=== PATIENT | male | born 1955 | race Asian ===

== ENCOUNTER 2024-01-04 13:44 | Outpatient (AMB) | payer OTHER, SELFPAY ==
[2024-01-04 13:47] VITALS: BP 126/66; PULSE 78; O2SAT 97; BMI 24.8
--- NOTE | 2024-01-04 13:47 | MHC.PC.OV ---
Vital Signs 01/04/24 13:47 Height 6 ft Weight 183 lb BMI 24.8 BP 126/66 Blood Pressure Location Rt brachial Position Sitting Pulse 78 Pulse Source Pulse Oximeter Pulse Oximetry (%) 97 Oxygen Delivery Method Room Air Intake Visit Reasons: New pt PE ok per Dr. Pérez Intake Note: Pt is here today for New patient visit. Allergies No Known Allergies Allergy (Verified 01/04/24 13:50) Medication List - Last Reconciled 01/04/24 by Alem Pérez MD blood-glucose sensor (Dexcom G7 Sensor device) As directed dapagliflozin propanediol 10 mg PO DAILY lisinopril 10 mg PO DAILY metformin 1,000 mg PO BID omeprazole 40 mg PO DAILY Ozempic (semaglutide) 0.25 mg (0.368 mL) subcut QWEEK NS Tobacco use date assessed: 01/04/24 Fall risk assessment: No Falls in past year Last assessed Fall Risk: 01/04/24 Dental Screening Dental Screen Date: 01/04/24 Did you have a dental visit in the last 12 months?: Yes Did you have a dental problem in the last 6 months where you did not have access to dental care?: No Was dental information given to patient?: Patient has dentist HPI New pt PE ok per Dr. 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 He moved from [place]. Past medical history includes type 2 diabetes for over 20 years. Patient reports his blood glucose not well controlled in the last few months with the readings between 140-180 occasionally. He denies polyuria polydipsia. 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 1. Little interest or pleasure in doing things: more than half the days 2. Feeling down, depressed, or hopeless: more than half the days 3. Trouble falling or staying asleep, or sleeping too much: not at all 4. Feeling tired or having little energy: several days 5. Poor appetite or overeating: not at all 6. Feeling bad about yourself - or that you are a failure or have let yourself or your family down: not at all 7. Trouble concentrating on things, such as reading the newspaper or watching television: several days 8. Moving or speaking so slowly that other people could have noticed. Or the opposite - being so fidgety or restless that you have been moving around a lot more than usual: not at all 9. Thoughts that you would be better off or of hurting yourself in some way: not at all Total score: 6 Depression Screening Interpretation: Negative Depression Screening Done: Yes 75451 - PHQ-9 Billing: Yes Source: Developed by Drs. Tapan Mak, Hallie Gaines, Kj Watkins and colleagues, with an educational lay from [employer] Thrive Questionnaire Date Thrive assessed: 01/04/24 I am a: Patient What is your living situation today?: I have a steady place to live Within the past 12 months, did the food you bought not last and you didn't have the money to get more?: Never true Within the past 12 months, did you worry whether your food would run out before you got money to buy more?: I choose not to answer this question Do you have trouble paying for medicines?: I choose not to answer this question Do you have trouble getting transportation to medical appointments?: I choose not to answer this question Do you have trouble paying your heating and electricity bill?: No Do you have trouble taking care of your child, family member or friend?: No Do you have trouble with day-to-day activities such as bathing, preparing meals, shopping, managing finances, etc.?: No Are you currently unemployed and looking for a job?: Yes Are you interested in more education?: Yes Please select the resources that you would like help with: Paying for medicine, Transportation, Job search/training and Education Currently or been in a relationship where the following occur: No concerns reported THRIVE Score: 0 AUDIT C Alcohol Use Questionnaire (AUDIT-C) 1. How often do you have a drink containing alcohol?: 4 or more times a week 2. How many drinks containing alcohol do you have on a typical day when you are drinking?: 1 or 2 3. How often do you have six or more drinks on one occasion?: Never Total Score: 4 HALINA-7 AMB Questionnaire HALINA-7 Date HALINA - 7 assessed: 01/04/24 Feeling nervous, anxious, or on edge: 1 = Several days Not being able to stop or control worryin = Several days Worrying too much about different things: 1 = Several days Trouble relaxin = Several days Being so restless that it is hard to sit still: 0 = Not at all Becoming easily annoyed or irritable: 1 = Several days Feeling afraid as if something awful might happen: 1 = Several days Total HALINA-7 score (0-4 normal; 5-9 mild; 10-14 moderate; 15-21 severe): 6 Source: Developed by Drs. Tapan Mak, Hallie Gaines, Kj Watkins and colleagues, with an educational lay from [employer] HALINA-7 Assessment Billing HALINA-7 Assessment Tool: HALINA-7 Assessment 27893 Review of Systems Const All systems reviewed & are unremarkable except as noted in HPI and below Eyes Reports no additional complaints ENT Reports no additional complaints Card Reports no additional complaints Resp Reports no additional complaints GI Reports no additional complaints Reports no additional complaints Physical exam (Primary Care) Vital Signs: Last Vital Signs Pulse 78 01/04/24 13:47 BP 126/66 01/04/24 13:47 Pulse Ox 97 01/04/24 13:47 Oxygen Delivery Method Room Air 01/04/24 13:47 BMI result Body Mass Index 24.8 Tobacco/Smoking Status: Tobacco use Status Tobacco use date assessed 01/04/24 01/04/24 13:57 Patient Tobacco Use Status Former Tobacco user (01/04/24 14:39 years ago) e-Cigarette/Vaping Use Never Used 01/04/24 14:39 PHQ-9: PHQ-9 Score PHQ-9: Total score 6 01/04/24 14:09 Depression Screening Interpretation: Negative Thrive Assessment: Date of Thrive Assessment Date Thrive assessed 01/04/24 01/04/24 13:57 Currently or been in a relationship where the following occur: No concerns reported Const General: no acute distress HENMT Head: Yes normal to inspection Ears: hearing grossly normal bilaterally Face and sinus: Yes normal facial exam Mouth: Normal oral and palatal mucosa present Throat: Yes posterior oropharynx normal Eyes General: appearance normal, both eyes and all related structures Neck Neck: Yes no lymphadenopathy and Yes supple Resp Effort & Inspection: normal respiratory effort Auscultation: diminished lung sounds Cardio Rhythm: regular rhythm Heart sounds: S1 normal heart sound present and S2 normal heart sound present GI Inspection: Yes normal to inspection Palpation (GI): Soft to palpation Percussion: Yes normal to percussion Auscultation: normal bowel sounds Extrem Other: Diabetic foot exam skin is intact monofilament sensation intact bilaterally General: Yes no clubbing, cyanosis or edema Coding Level of Care Code Complex EM visit Add On G2211 Diagnoses DM type 2 (diabetes mellitus, type 2) E11.9 HTN (hypertension) I10 Hyperlipidemia E78.5 Hx of fracture of patella Z87.81 Annual physical exam Z00.00 Family hx of colon cancer Z80.0 Fatty liver K76.0 Nocturnal polyuria R35.81 Proteinuria R80.9 History of tobacco use Z87.891 Additional Codes HALINA-7 Assessment Billing - HALINA-7 Assessment Tool: HALINA-7 Assessment 01680 ([id number]) Assessment & Plan Assessment & Plan (1) DM type 2 (diabetes mellitus, type 2): Comment: for 24 yrs Code(s): E11.9 - Type 2 diabetes mellitus without complications Category: Medical Plan: A1c is 7.3. ADA diet discussed with the patient metformin will be increased from 500 mg twice a day to a 1000 mg twice a day patient will continue dapagliflozin and Ozempic 0.25 mg weekly will be started. He will start monitoring his glucose with Dexcom due to increased risk of hypoglycemia. He will follow-up in 1 month (2) HTN (hypertension): Code(s): I10 - Essential (primary) hypertension Category: Medical Plan: Potassium was borderline elevated and lisinopril will be decreased from 20 mg to 10 mg a day. Low-potassium diet discussed with the patient basic metabolic panel will be checked in 1 week (3) Hyperlipidemia: Code(s): E78.5 - Hyperlipidemia, unspecified Category: Medical Plan: Low-cholesterol diet discussed with the patient (4) Hx of fracture of patella: Comment: Left patella s/p surgery 07/2023 Code(s): Z87.81 - Personal history of (healed) traumatic fracture Category: Medical Plan: Patient has been in physical therapy for chronic left knee pain (5) Annual physical exam: Code(s): Z00.00 - Encounter for general adult medical examination without abnormal findings Category: Medical Plan: Well-balanced diet regular physical activity discussed with the patient Patient will be referred to GI for colonoscopy (6) Family hx of colon cancer: Comment: sister in 80'S, patient never had colonoscopy Code(s): Z80.0 - Family history of malignant neoplasm of digestive organs Category: Medical Plan: Referred to GI for colonoscopy (7) Fatty liver: Comment: Obtain liver ultrasound Code(s): K76.0 - Fatty (change of) liver, not elsewhere classified Category: Medical Plan: Check liver ultrasound. Stopping drinking alcohol discussed with the patient (8) Nocturnal polyuria: Code(s): R35.81 - Nocturnal polyuria Category: Medical Plan: For nocturnal polyuria bladder scan will be obtained to rule out urinary retention (9) Proteinuria: Code(s): R80.9 - Proteinuria, unspecified Category: Medical Plan: Obtain 24 hour urine collection for proteinuria (10) History of tobacco use: Comment: 2 PPD X 40 YRS, quit 10 years, referred to lung cancer screening program 12/2023 Code(s): Z87.891 - Personal history of nicotine dependence Category: Social Hx Plan: Referred to lung cancer screening program Orders: Orders US abdomen complete Today K76.0 - Fatty (change of) liver, not elsewhere classified, Z87.891 - Personal history of nicotine dependence US bladder Today R35.81 - Nocturnal polyuria Basic Metabolic Panel 1 Week I10 - Essential (primary) hypertension, R80.9 - Proteinuria, unspecified Protein, 24 Hr Urine Group 1 Week I10 - Essential (primary) hypertension, R80.9 - Proteinuria, unspecified Referrals Gastroenterology Referral Z80.0 - Family history of malignant neoplasm of digestive organs Thoracic/General Surgery Referral Z87.891 - Personal history of nicotine dependence Medications: New Ozempic (semaglutide) 0.25 mg (0.368 mL) subcut QWEEK 3 mL 1RF NS metformin 1,000 mg PO BID 180 tabs 1RF lisinopril 10 mg PO DAILY 90 tabs 1RF dapagliflozin propanediol 10 mg PO DAILY 90 tabs 3RF omeprazole 40 mg PO DAILY 30 caps 2RF blood-glucose sensor ([employer] G7 Sensor device) As directed 2 ea 3RF
== END 2024-01-04 15:43 | disposition home or self-care (01) ==
PROVIDERS: PCP Internal Medicine; Visit Provider Internal Medicine
DX: E11.9 Type 2 diabetes mellitus without complications (principal); I10 Essential (primary) hypertension; E78.5 Hyperlipidemia, unspecified; Z87.81 Personal history of (healed) traumatic fracture; Z00.00 Encounter for general adult medical examination without abnormal findings; Z80.0 Family history of malignant neoplasm of digestive organs; K76.0 Fatty (change of) liver, not elsewhere classified; R35.81 Nocturnal polyuria; R80.9 Proteinuria, unspecified; Z87.891 Personal history of nicotine dependence

== ENCOUNTER → 2024-01-04 13:44 | Outpatient (BNVA) | payer OTHER, SELFPAY | PROVIDERS: PCP Internal Medicine; Visit Provider Internal Medicine | DX: Z00.01 Encounter for general adult medical examination with abnormal findings (principal); E11.9 Type 2 diabetes mellitus without complications; I10 Essential (primary) hypertension; E78.5 Hyperlipidemia, unspecified; K76.0 Fatty (change of) liver, not elsewhere classified; R35.81 Nocturnal polyuria; R80.9 Proteinuria, unspecified; Z87.891 Personal history of nicotine dependence; Z87.81 Personal history of (healed) traumatic fracture; Z79.899 Other long term (current) drug therapy; Z80.0 Family history of malignant neoplasm of digestive organs | CPT/HCPCS: 96127; 99202; 99387 ==

== ENCOUNTER 2024-01-29 10:03 | Outpatient (REF) | payer OTHER, SELFPAY ==
--- NOTE | ~2024-01-29 | US_ITS ---
EXAMINATION: US ABDOMEN COMPLETE CLINICAL INFORMATION: Fatty (change of) liver, not elsewhere classified. COMPARISON: None available. TECHNIQUE: Real-time imaging of the abdominal viscera. FINDINGS: PANCREAS: Normal. ABDOMINAL AORTA: The proximal, mid, and distal segments are normal in caliber. INFERIOR VENA CAVA: Visualized portions are normal. LIVER: The liver is normal in size. The liver contour is normal. Increased echogenicity of the liver parenchyma, this can be seen in the setting of hepatic steatosis or liver parenchymal disease. No focal hepatic lesion. There is no intrahepatic biliary duct dilatation seen. GALLBLADDER: Normal. The gallbladder is physiologically distended without evidence of stones, sludge, polyps, wall thickening or pericholecystic fluid. COMMON BILE DUCT: Normal in caliber measuring 0.3 cm in diameter. RIGHT KIDNEY: Normal. No hydronephrosis. No renal calculi or focal parenchymal lesions. The kidney measures 10.9 cm in maximum dimension. LEFT KIDNEY: Large cyst 8.6 x 7.4 cm protruding from the upper pole. No hydronephrosis or renal calculi. The kidney measures 11.6 cm in maximum dimension. SPLEEN: Normal. The spleen measures 9.3 cm in maximum dimension. FREE FLUID: None. US/US abdomen complete IMPRESSION: 1. Increased echogenicity of the liver parenchyma, this can be seen in the setting of hepatic steatosis or liver parenchymal disease. 2. Large cyst protruding from the upper pole left kidney 8.6 cm. Electronically signed by: Rayshawn Sosa MD 02/04/2024 07:06 PM TIM
== END 2024-01-29 10:04 | disposition home or self-care (01) ==
LOC: HO.US 10:03
PROVIDERS: PCP Internal Medicine; Visit Provider Internal Medicine
DX: K76.0 Fatty (change of) liver, not elsewhere classified (principal); R35.81 Nocturnal polyuria; Z87.891 Personal history of nicotine dependence
CPT/HCPCS: 76700; 76857

== ENCOUNTER 2024-02-01 14:22 | Outpatient (AMB) | payer OTHER, SELFPAY ==
--- NOTE | 2024-02-01 14:31 | MHC.PC.OV ---
Vital Signs 02/01/24 14:32 Height 6 ft Weight 180 lb BMI 24.4 BP 110/70 Blood Pressure Location Lt brachial Position Sitting Pulse 88 Pulse Source Pulse Oximeter Pulse Oximetry (%) 97 Oxygen Delivery Method Room Air Intake Visit Reasons: 1 month follow up Intake Note: Pt is here today for 1 month follow up visit. Allergies semaglutide [From Ozempic] Adverse Reaction (Intermediate, Verified 02/01/24 15:25) Nausea and Vomiting Medication List - Last Reconciled 02/01/24 by Alem Pérez MD blood-glucose sensor (Dexcom G7 Sensor device) As directed dapagliflozin propanediol 10 mg PO DAILY lisinopril 10 mg PO DAILY metformin 1,000 mg PO BID omeprazole 40 mg PO DAILY Tobacco use date assessed: 01/04/24 Dental Screening Dental Screen Date: 01/04/24 HPI 1 month follow up HPI Details Patient presents for a follow-up. He could not tolerate Ozempic developed severe nausea decreased appetite and heartburn. He reports high blood glucose readings 50% in above range. Patient has been following ADA diet eating mainly protein and vegetables but no grains. 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 3. Trouble falling or staying asleep, or sleeping too much: several days Source: Developed by Drs. Tapan Mak, Hallie Gaines, Kj Watkins and colleagues, with an educational lay from [employer]. Thrive Questionnaire Date Thrive assessed: 01/04/24 I am a: Patient What is your living situation today?: I have a steady place to live Within the past 12 months, did the food you bought not last and you didn't have the money to get more?: Never true Within the past 12 months, did you worry whether your food would run out before you got money to buy more?: I choose not to answer this question Do you have trouble paying for medicines?: I choose not to answer this question Do you have trouble getting transportation to medical appointments?: I choose not to answer this question Do you have trouble paying your heating and electricity bill?: No Do you have trouble taking care of your child, family member or friend?: No Do you have trouble with day-to-day activities such as bathing, preparing meals, shopping, managing finances, etc.?: No Are you currently unemployed and looking for a job?: Yes Are you interested in more education?: Yes Currently or been in a relationship where the following occur: No concerns reported THRIVE Score: 0 HALINA-7 AMB Questionnaire HALINA-7 Date HALINA - 7 assessed: 01/04/24 Source: Developed by Drs. Tapan Mak, Hallie Gaines, Kj Watkins and colleagues, with an educational lay from [employer]. Review of Systems Const All systems reviewed & are unremarkable except as noted in HPI and below Resp Reports no additional complaints GI Reports no additional complaints Reports no additional complaints Physical exam (Primary Care) Vital Signs: Last Vital Signs Pulse 88 02/01/24 14:32 BP 110/70 02/01/24 14:32 Pulse Ox 97 02/01/24 14:32 Oxygen Delivery Method Room Air 02/01/24 14:32 BMI result Body Mass Index 24.4 Tobacco/Smoking Status: Tobacco use Status Tobacco use date assessed 01/04/24 02/01/24 14:32 Patient Tobacco Use Status Former Tobacco user (02/01/24 14:32 years ago) e-Cigarette/Vaping Use Never Used 02/01/24 14:32 Thrive Assessment: Date of Thrive Assessment Date Thrive assessed 01/04/24 02/01/24 14:32 Currently or been in a relationship where the following occur: No concerns reported Const General: no acute distress Resp Effort & Inspection: normal respiratory effort Auscultation: clear to auscultation bilaterally Cardio Rhythm: regular rhythm Heart sounds: S1 normal heart sound present and S2 normal heart sound present Extrem General: Yes no clubbing, cyanosis or edema Coding Level of Care Code Est Pt Level 4 (28875) Complex EM visit Add On G2211 Diagnoses Proteinuria R80.9 HTN (hypertension) I10 DM type 2 (diabetes mellitus, type 2) E11.9 Insulin dependent type 2 diabetes mellitus E11.9; Z79.4 Assessment & Plan Assessment & Plan (1) Proteinuria: Code(s): R80.9 - Proteinuria, unspecified Category: Medical Plan: Continue dapagliflozin and lisinopril (2) HTN (hypertension): Code(s): I10 - Essential (primary) hypertension Category: Medical Plan: Continue Lisinopril (3) DM type 2 (diabetes mellitus, type 2): Comment: for 24 yrs, intolerant to Ozempic severe nausea Code(s): E11.9 - Type 2 diabetes mellitus without complications Category: Medical Plan: ADA diet discussed with the patient. Metformin will be changed from 1000 mg to 750 mg slow release 2 tabl a day because of stomach upset. Lantus 10 units will be started. Patient was advised to eat 3 regular meals and monitor his blood glucose with Dexcom because of high risk for hypoglycemia. 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
[2024-02-01 14:32] VITALS: BP 110/70; PULSE 88; O2SAT 97; BMI 24.4
== END 2024-02-01 15:09 | disposition home or self-care (01) ==
PROVIDERS: PCP Internal Medicine; Visit Provider Internal Medicine
DX: R80.9 Proteinuria, unspecified (principal); I10 Essential (primary) hypertension; E11.9 Type 2 diabetes mellitus without complications; Z79.4 Long term (current) use of insulin

== ENCOUNTER → 2024-02-01 14:22 | Outpatient (BNVA) | payer OTHER, SELFPAY | PROVIDERS: PCP Internal Medicine; Visit Provider Internal Medicine | DX: R80.9 Proteinuria, unspecified (principal); I10 Essential (primary) hypertension; E11.9 Type 2 diabetes mellitus without complications; Z79.4 Long term (current) use of insulin | CPT/HCPCS: 99212 ==

== ENCOUNTER 2024-03-07 14:02 | Outpatient (AMB) | payer OTHER, SELFPAY ==
--- NOTE | 2024-03-07 14:05 | A.OFFPC_ITS ---
Vital Signs 03/07/24 14:12 Height 6 ft Weight 182 lb BMI 24.7 BP 118/60 Blood Pressure Location Rt brachial Position Sitting Pulse 74 Pulse Source Pulse Oximeter Pulse Oximetry (%) 96 Oxygen Delivery Method Room Air Intake Visit Reasons: 1 month follow up Intake Note: Pt is here today for 1 month follow up visit on DM. Allergies semaglutide [From Ozempic] Adverse Reaction (Intermediate, Verified 03/07/24 14:20) Nausea and Vomiting Medication List - Last Reconciled 03/07/24 by Alem Pérez MD blood-glucose sensor ([employer] G7 Sensor device) As directed dapagliflozin propanediol 10 mg PO DAILY flash glucose sensor ([employer] [employer] Americo 14 Day Sensor kit) Check blood sugar daily insulin lispro (Humalog KwikPen (U-100) Insulin) 4 units (0.04 mL) subcut TID Lantus Solostar U-100 Insulin (insulin glargine) 30 units (0.3 mL) subcut QPM NS lisinopril 10 mg PO BID metformin ER 1,500 mg (2 x 750 mg) PO DAILY omeprazole 40 mg PO DAILY pen needle, diabetic (Comfort EZ Pen [place]) qd Tobacco use date assessed: 01/04/24 Dental Screening Dental Screen Date: 01/04/24 HPI 1 month follow up HPI Details Patient presents for the follow-up on insulin-dependent diabetes hypertension. Patient reports fasting blood glucose between 160-180 and has been 46% in the range by Americo sensor. Patient denies hypoglycemia and has been exercising daily for an hour. 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 [place] Housing: House Patient Tobacco Use Status: Former Tobacco user (10 years ago) e-Cigarette/Vaping Use: Never Used service: No Current occupational status: retired Cognitive needs: No Hearing needs: No Vision needs: No Questionnaire Thrive Questionnaire Date Thrive assessed: 01/04/24 I am a: Patient What is your living situation today?: I have a steady place to live Within the past 12 months, did the food you bought not last and you didn't have the money to get more?: Never true Within the past 12 months, did you worry whether your food would run out before you got money to buy more?: I choose not to answer this question Do you have trouble paying for medicines?: I choose not to answer this question Do you have trouble getting transportation to medical appointments?: I choose not to answer this question Do you have trouble paying your heating and electricity bill?: No Do you have trouble taking care of your child, family member or friend?: No Do you have trouble with day-to-day activities such as bathing, preparing meals, shopping, managing finances, etc.?: No Are you currently unemployed and looking for a job?: Yes Are you interested in more education?: Yes Currently or been in a relationship where the following occur: No concerns reported THRIVE Score: 0 HALINA-7 AMB Questionnaire HALINA-7 Date HALIAN - 7 assessed: 01/04/24 Source: Developed by Drs. Tapan Mak, Hallie Gaines, Kj Watkins and colleagues, with an educational lay from [employer]. Review of Systems Const All systems reviewed & are unremarkable except as noted in HPI and below Card Reports no additional complaints Resp Reports no additional complaints GI Reports no additional complaints Reports no additional complaints Physical exam (Primary Care) Vital Signs: Last Vital Signs Pulse 74 03/07/24 14:12 BP 118/60 03/07/24 14:12 Pulse Ox 96 03/07/24 14:12 Oxygen Delivery Method Room Air 03/07/24 14:12 BMI result Body Mass Index 24.7 Tobacco/Smoking Status: Tobacco use Status Tobacco use date assessed 01/04/24 03/07/24 14:05 Patient Tobacco Use Status Former Tobacco user (03/07/24 14:05 years ago) e-Cigarette/Vaping Use Never Used 03/07/24 14:05 Thrive Assessment: Date of Thrive Assessment Date Thrive assessed 01/04/24 03/07/24 14:05 Currently or been in a relationship where the following occur: No concerns reported Const General: no acute distress HENMT Head: Yes normal to inspection Neck Neck: Yes supple Resp Effort & Inspection: normal respiratory effort Auscultation: clear to auscultation bilaterally Cardio Rhythm: regular rhythm Heart sounds: S1 normal heart sound present and S2 normal heart sound present Coding Level of Care Code Est Pt Level 4 (60779) Diagnoses Insulin dependent type 2 diabetes mellitus E11.9; Z79.4 HTN (hypertension) I10 Proteinuria R80.9 Assessment & Plan Assessment & Plan (1) Insulin dependent type 2 diabetes mellitus: Comment: For 25 years, patient intolerant to Ozempic cause nausea vomiting Code(s): E11.9 - Type 2 diabetes mellitus without complications; 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 Check basic metabolic panel in 1 week (3) Proteinuria: Code(s): R80.9 - Proteinuria, unspecified Category: Medical Plan: Increase lisinopril to 10 mg twice a day follow-up in 1 month Orders: Orders Comprehensive [place]. 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 Complete Blood Count Auto Diff 1 Month E11.9 - Type 2 diabetes mellitus without complications, I10 - Essential (primary) hypertension, R80.9 - Proteinuria, unspecified, Z79.4 - group home (current) use of insulin Hemoglobin A1c 1 Month E11.9 - Type 2 diabetes mellitus without complications, I10 - Essential (primary) hypertension, R80.9 - Proteinuria, unspecified, Z79.4 - 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
[2024-03-07 14:12] VITALS: BP 118/60; PULSE 74; O2SAT 96; BMI 24.7
== END 2024-03-07 15:18 | disposition home or self-care (01) ==
LOC: HO.HMCC 14:02
PROVIDERS: PCP Internal Medicine; Visit Provider Internal Medicine
DX: E11.9 Type 2 diabetes mellitus without complications (principal); Z79.4 Long term (current) use of insulin; I10 Essential (primary) hypertension; R80.9 Proteinuria, unspecified

== ENCOUNTER → 2024-03-07 14:02 | Outpatient (BNVA) | payer OTHER, SELFPAY | PROVIDERS: PCP Internal Medicine; Visit Provider Internal Medicine | DX: E11.9 Type 2 diabetes mellitus without complications (principal); I10 Essential (primary) hypertension; R80.9 Proteinuria, unspecified; Z79.4 Long term (current) use of insulin | CPT/HCPCS: 99212 ==

== ENCOUNTER 2024-03-29 10:15 | Outpatient (AMB) | payer OTHER, SELFPAY ==
--- NOTE | 2024-03-29 07:55 | A.OFFVIS_ITS ---
Intake Visit Reasons: Former Smoker Allergies semaglutide [From Ozempic] Adverse Reaction (Intermediate, Verified 03/07/24 14 :20) Nausea and Vomiting HPI HPI Former Smoker: Details: Initial visit for this 68yo former smoker with a 60PYH. Patient started smoking at age 26 for 31 years at 2ppd. He quit 11 years ago in 02/2013. . Denies marijuana use. Denies second hand smoke exposure. Denies exposure to chemicals or substances like asbestos. . Denies known family history of lung cancer. Denies personal history of cancers. Denies chest CT in last year. . Recent travel outside the [place]. [place] and [place]. Denies recent respiratory illness or recent hospitalization for respiratory issues. Denies testing positive for COVID. Admits receiving COVID Vaccine. . Denies fever, chills, new/worsening cough, hemoptysis, hoarseness or dysphagia. Denies significant chest pain, significant dyspnea or unintentional weight loss. Patient Lung Cancer Screening Questionnaire reviewed with patient by provider. . Shared Decision Making Completed. Patient meets criteria. Discussed in detail with patient, the risk vs benefit of LDCT screening. Patient consents to proceed with scan. Discussed and encouraged continued smoking cessation. 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 - Patient meets criteria for LDCT for lung cancer screening purposes and is asymptomatic. - Smoking cessation counseling offered. Patients can always call [phone]. - Will arrange for a LDCT scan of the chest for screening purposes at [facility]. - Risks, benefits, and alternatives were discussed in detail and the patient agrees to proceed. - Risks discussed include but are not limited to: radiation exposure, anxiety during testing and while awaiting results, false negatives, false positives and possibility of additional intervention such as further imaging or surgical procedures for benign disease. - Benefits are obviously detection of lung cancer at an early stage which can lead to improved outcomes. - Discussed the importance of screening program compliance with adherence to yearly LDCT scan as scheduled - or sooner interval scans for personalized screening regimen. - Discussed follow up plan. Our office will send a letter discussing results and if needed set up phone call and office visit based on CT findings. - Patient educated on results categorization and the management decisions for suspicious findings potentially found on the screening LDCT scan. Any patient with a Lung RADS score of 3 or 4 will be reviewed by a multidisciplinary team at [facility] to form a plan of action in regards to scan findings. - If further work up is warranted for a suspicious lung finding this will be followed by the Lung Cancer Screening program in conjunction with the Thoracic Surgery Department at [facility]. - A copy of the office note and LDCT will be sent to the patient's PCP - as well as documentation on any associated further plans of care. - Incidental findings on LDCT are the PCP's responsibility. These findings are indicated with an S finding on the LDCT Assessment. A note discussing the findings will be sent to the PCP who is then responsible for further management. - All questions answered.? Plan The USPTF recommends men age 65-75 who have ever smoked have a one-time Abdominal Ultrasound screening for AAA. 01/29/24 Abd US showed normal aorta caliber. Coding Level of Care Code Lung Cancer Screening G0296 Diagnoses Personal history of nicotine dependence Z87.891
== END 2024-03-29 10:47 | disposition home or self-care (01) ==
PROVIDERS: PCP Internal Medicine; Visit Provider Physician Assistant Medical
DX: Z87.891 Personal history of nicotine dependence (principal)
CPT/HCPCS: G0296

== ENCOUNTER 2024-03-29 10:36 | Outpatient (REF) | payer OTHER, SELFPAY ==
--- NOTE | ~2024-03-29 | CT_ITS ---
CLINICAL HISTORY: Z87.891 - Personal history of nicotine dependence CT lung cancer screening (LDCT) Comparison: None Technique: Axial CT images of the chest using low-dose technique. Referring provider counseled the patient on shared decision-making for LDCT screening. Additional counseling was provided on smoking cessation. Effective radiation dose total: DLP 47.5 mGycm, CTDIvol 1.4 mGy. Findings: Lung: Centrilobular emphysema. There are calcified granulomas. 7.6 mm para fissural nodule of the right middle lobe series 4, image 31. 3 mm subpleural nodule of the left upper lobe image 38. 5 mm subpleural nodule of the left lower lobe image 48. There are additional small pulmonary nodules. Coronary artery calcifications: Mild Limited upper abdomen: Limited evaluation of the left renal cyst. Other: None Impression: LungRADS 3 - Probably benign: Recommend low dose screening Chest CT in 6 months. ##L3# Category 1: Normal; continue annual screening Category 2: Benign appearance or behavior, continue annual screening Category 3: Probably benign, [address] recommended Category 4A: Suspicious, [address] recommended; may consider PET/CT Category 4B: Suspicious, Additional diagnostics and/or tissue sampling recommended Category 4X: Suspicious, Additional diagnostics and/or tissue sampling recommended Category 0: Recalls (incomplete screen due to Incomplete coverage, Noise, Respiratory motion, Expiration, Obscured by acute abnormality) This document has been electronically signed by: George Brunson MD on 04/01/2024 14:29:11
== END 2024-03-29 10:37 | disposition home or self-care (01) ==
LOC: HO.CT 10:36
PROVIDERS: PCP Internal Medicine; Visit Provider Physician Assistant Medical
DX: Z12.2 Encounter for screening for malignant neoplasm of respiratory organs (principal); Z87.891 Personal history of nicotine dependence
CPT/HCPCS: 71271; G0296

== ENCOUNTER 2024-05-03 13:42 | Outpatient (AMB) | payer OTHER, SELFPAY ==
[2024-05-03 13:52] VITALS: BP 120/70; PULSE 75; RESP 18; TEMP 36.7; O2SAT 96; BMI 24.4
--- NOTE | 2024-05-03 13:52 | MHC.PC.OV ---
Vital Signs 05/03/24 13:52 Height 6 ft Weight 180 lb BMI 24.4 BP 120/70 Blood Pressure Location Lt brachial Position Sitting Respiration 18 Pulse 75 Pulse Source Pulse Oximeter Temp 98.1 F Temp Source Oral Pulse Oximetry (%) 96 Oxygen Delivery Method Room Air Intake Visit Reasons: 1 month f/up Intake Note: Pt is here today for 1 month follow up visit on DM. Allergies semaglutide [From Ozempic] Adverse Reaction (Intermediate, Verified 05/03/24 13:58) Nausea and Vomiting Medication List - Last Reconciled 05/03/24 by Alem Pérez MD blood-glucose sensor ([employer] G7 Sensor device) As directed dapagliflozin propanediol 10 mg PO DAILY flash glucose sensor ([employer] 14 Day Sensor kit) Check blood sugar daily insulin lispro (Humalog KwikPen (U-100) Insulin) 6 units (0.06 mL) subcut BID Lantus Solostar U-100 Insulin (insulin glargine) 40 units (0.4 mL) subcut QPM NS lisinopril 10 mg PO BID metformin ER 1,500 mg (2 x 750 mg) PO DAILY omeprazole 40 mg PO DAILY pen needle, diabetic (Comfort EZ Pen [place]) qd Tobacco use date assessed: 05/03/24 Fall risk assessment: No Falls in past year Last assessed Fall Risk: 05/03/24 Dental Screening Dental Screen Date: 05/03/24 Did you have a dental visit in the last 12 months?: Yes Did you have a dental problem in the last 6 months where you did not have access to dental care?: No Was dental information given to patient?: Patient has dentist HPI 1 month f/up HPI Details Pt presents for f/u IDDM and HTN. Pt reports high gucose >200 after lunch and dinner and FBG >120-160. 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 1. Little interest or pleasure in doing things: several days 2. Feeling down, depressed, or hopeless: several days 3. Trouble falling or staying asleep, or sleeping too much: several days 4. Feeling tired or having little energy: not at all 5. Poor appetite or overeating: not at all 6. Feeling bad about yourself - or that you are a failure or have let yourself or your family down: not at all 7. Trouble concentrating on things, such as reading the newspaper or watching television: several days 8. Moving or speaking so slowly that other people could have noticed. Or the opposite - being so fidgety or restless that you have been moving around a lot more than usual: not at all 9. Thoughts that you would be better off or of hurting yourself in some way: not at all Total score: 4 Depression Screening Interpretation: Negative Depression Screening Done: Yes 20606 - PHQ-9 Billing: Yes Source: Developed by Drs. Tapan Mak, Hallie Gaines, Kj Watkins and colleagues, with an educational lay from [employer]. Thrive Questionnaire Date Thrive assessed: 05/03/24 I am a: Patient What is your living situation today?: I have a steady place to live Within the past 12 months, did the food you bought not last and you didn't have the money to get more?: Never true Within the past 12 months, did you worry whether your food would run out before you got money to buy more?: Never true Do you have trouble paying for medicines?: No Do you have trouble getting transportation to medical appointments?: I choose not to answer this question Do you have trouble paying your heating and electricity bill?: No Do you have trouble taking care of your child, family member or friend?: No Do you have trouble with day-to-day activities such as bathing, preparing meals, shopping, managing finances, etc.?: No Are you currently unemployed and looking for a job?: Yes Are you interested in more education?: I choose not to answer this question Please select the resources that you would like help with: None Currently or been in a relationship where the following occur: No concerns reported THRIVE Score: 0 AUDIT C Alcohol Use Questionnaire (AUDIT-C) 1. How often do you have a drink containing alcohol?: 2-3 times a week 2. How many drinks containing alcohol do you have on a typical day when you are drinking?: 1 or 2 3. How often do you have six or more drinks on one occasion?: Never Total Score: 3 HALINA-7 AMB Questionnaire HALINA-7 Date HALINA - 7 assessed: 05/03/24 Feeling nervous, anxious, or on edge: 1 = Several days Not being able to stop or control worryin = Several days Worrying too much about different things: 1 = Several days Trouble relaxin = Several days Being so restless that it is hard to sit still: 0 = Not at all Becoming easily annoyed or irritable: 1 = Several days Feeling afraid as if something awful might happen: 1 = Several days Total HALINA-7 score (0-4 normal; 5-9 mild; 10-14 moderate; 15-21 severe): 6 Source: Developed by Drs. Tapan Mak, Hallie Gaines, Kj Watkins and colleagues, with an educational lay from [employer]. HALINA-7 Assessment Billing HALINA-7 Assessment Tool: HALINA-7 Assessment 02978 Review of Systems Const All systems reviewed & are unremarkable except as noted in HPI and below ENT Reports no additional complaints Card Reports no additional complaints Resp Reports no additional complaints GI Reports no additional complaints Reports no additional complaints Physical exam (Primary Care) Vital Signs: Last Vital Signs Temp 98.1 F 05/03/24 13:52 Pulse 75 05/03/24 13:52 Resp 18 05/03/24 13:52 BP 120/70 05/03/24 13:52 Pulse Ox 96 05/03/24 13:52 Oxygen Delivery Method Room Air 05/03/24 13:52 BMI result Body Mass Index 24.4 Tobacco/Smoking Status: Tobacco use Status Tobacco use date assessed 05/03/24 05/03/24 13:58 Patient Tobacco Use Status Former Tobacco user (10 05/03/24 13:53 years ago) e-Cigarette/Vaping Use Never Used 05/03/24 13:53 PHQ-9: PHQ-9 Score PHQ-9: Total score 4 05/03/24 14:27 Depression Screening Interpretation: Negative Thrive Assessment: Date of Thrive Assessment Date Thrive assessed 05/03/24 05/03/24 14:03 Currently or been in a relationship where the following occur: No concerns reported Const General: no acute distress HENMT Head: Yes normal to inspection Face and sinus: Yes normal facial exam Eyes General: appearance normal, both eyes and all related structures Resp Effort & Inspection: normal respiratory effort Auscultation: clear to auscultation bilaterally Cardio Rhythm: regular rhythm Heart sounds: S1 normal heart sound present and S2 normal heart sound present GI Inspection: Yes normal to inspection Palpation (GI): Soft to palpation Percussion: Yes normal to percussion Auscultation: normal bowel sounds Results AMB Hemoglobin A1c AMB Hemoglobin A1c 7.3 % Last Edit by CUCO Hartman on 05/03/24 14:27 Results Reviewed Results Reviewed: Laboratory Last Values Hgb A1c (Clinic) 7.3 % (4.0-6.0) H 05/03/24 14:22 Coding Level of Care Code Est Pt Level 4 (31816) Diagnoses Insulin dependent type 2 diabetes mellitus E11.9; Z79.4 HTN (hypertension) I10 Additional Codes HALINA-7 Assessment Billing - HALINA-7 Assessment Tool: HALINA-7 Assessment 15699 ([id number]) PHQ-9 - 74851 - PHQ-9 Billing: Yes ([id number]) Assessment & Plan Assessment & Plan (1) Insulin dependent type 2 diabetes mellitus: Comment: For 25 years, patient intolerant to Ozempic cause nausea vomiting Code(s): E11.9 - Type 2 diabetes mellitus without complications; 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 Category: Medical Plan: A1C is 7.3, increase Lantus to 40 u and add 6 u of Humalog before lunch and dinner, add Pravastatin 40 mg, f/u 3 months (2) HTN (hypertension): Code(s): I10 - Essential (primary) hypertension Category: Medical Plan: cont Lisinopril Orders: Orders Hemoglobin A1c 3 Months E11.9 - Type 2 diabetes mellitus without complications, I10 - Essential (primary) hypertension, Z79.4 - half-way (current) use of insulin Microalbumin, Random (w Creat) 3 Months E11.9 - Type 2 diabetes mellitus without complications, I10 - Essential (primary) hypertension, Z79.4 - half-way (current) use of insulin AMB Hemoglobin A1c Today Z13.9 - Encounter for screening, unspecified Comprehensive [place]. 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
== END 2024-05-03 14:56 | disposition home or self-care (01) ==
PROVIDERS: PCP Internal Medicine; Visit Provider Internal Medicine
DX: E11.9 Type 2 diabetes mellitus without complications (principal); Z79.4 Long term (current) use of insulin; I10 Essential (primary) hypertension; Z13.9 Encounter for screening, unspecified

== ENCOUNTER → 2024-05-03 13:42 | Outpatient (BNVA) | payer OTHER, SELFPAY | PROVIDERS: PCP Internal Medicine; Visit Provider Internal Medicine | DX: E11.9 Type 2 diabetes mellitus without complications (principal); Z79.4 Long term (current) use of insulin; I10 Essential (primary) hypertension | CPT/HCPCS: 83036; 96127; 99212 ==

== ENCOUNTER 2024-05-16 15:08 | Outpatient (AMB) | payer OTHER, SELFPAY ==
--- NOTE | 2024-05-16 15:12 | A.OFFVIS_ITS ---
Intake Visit Reasons: Nocturia/PVR Intake Note: New Patient is present for nocturia Any Urology Meds: no Antibiotic Allergies: no Blood Thinners: no Family History: Bladder Ca? Prostate Ca? Previous Urologists? [employer] Human [employer] Director Required: No Accompanied by: Family/Other Allergies semaglutide [From Ozempic] Adverse Reaction (Intermediate, Verified 05/16/24 15:30) Nausea and Vomiting Medication List - Last Reconciled 05/16/24 by Ozzie Ennis MD alfuzosin ER 10 mg PO DAILY blood-glucose sensor (Zendesk G7 Sensor device) As directed dapagliflozin propanediol 10 mg PO DAILY flash glucose sensor (FreeStyle Americo 14 Day Sensor kit) Check blood sugar daily insulin lispro (Humalog KwikPen (U-100) Insulin) 6 units (0.06 mL) subcut BID Lantus Solostar U-100 Insulin (insulin glargine) 40 units (0.4 mL) subcut QPM NS lisinopril 10 mg PO BID metformin ER 1,500 mg (2 x 750 mg) PO DAILY omeprazole 40 mg PO DAILY pen needle, diabetic (Comfort EZ Pen [place]) qd pravastatin 40 mg PO BEDTIME PFSH Medical History Insulin dependent type 2 diabetes mellitus HTN (hypertension) Fatty liver Personal history of nicotine dependence Macular hole of right eye Surgical History History of right knee surgery History of vitrectomy Family History Father Diabetes Mother Diabetes 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 History 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[place] Housing: House Patient Tobacco Use Status: Former Tobacco user (10 years ago) Years Smoked: (onset 26yo, 2ppd x 31yrs, 60pyh, quit 02/2013) e-Cigarette/Vaping Use: Never Used service: No Current occupational status: retired Cognitive needs: No Hearing needs: No Vision needs: No Review of Systems Const All systems reviewed & are unremarkable except as noted in HPI and below Reports no additional complaints Eyes Reports no additional complaints ENT Reports no additional complaints Card Reports no additional complaints Resp Reports no additional complaints GI Reports no additional complaints Reports as per HPI Musc Reports no additional complaints Skin/Breast Reports system reviewed and no additional complaints, except as documented Neuro Reports no additional complaints Psych Reports no additional complaints Endo Reports no additional complaints Martin/Lymph Reports no additional complaints Aller/Immun Reports no additional complaints Physical Exam Const General: healthy appearing, no acute distress and well developed Orientation/consciousness: patient oriented x3 HEENT Head: Yes normocephalic and Yes atraumatic Eyes Conjunctivae: conjunctivae normal Neck Neck: Yes normal visual inspection Chest Chest palpation & inspection: normal inspection of the chest Resp Effort & Inspection: normal respiratory effort GI Inspection: Yes normal to inspection Skin General skin exam: no rashes or lesions noted Neuro General: patient oriented x3 Psych Appearance: grossly normal Affect: normal affect Office Procedures Post Void Residual Post Residual Void Post Void Residual (PVR): 40 [id number] Void Residual by ultrasound Results AMB Urinalysis, Automated UA Leukoctes 0 Agustin/uL Last Edit by Brie Lin MA on 05/16/24 15:29 UA Nitrite Negative Last Edit by Brie Lin MA on 05/16/24 15:29 UA Urobilinogen 0.2 mg/dL Last Edit by Brie Lin MA on 05/16/24 15:29 UA Protein 0 mg/dL Last Edit by Brie Lin MA on 05/16/24 15:29 UA pH 5.0 Last Edit by Brie Lin MA on 05/16/24 15:29 UA Blood 0 Denys/uL Last Edit by Brie Lin MA on 05/16/24 15:29 UA Specific [place] 1.015 Last Edit by Brie Lin MA on 05/16/24 15:29 UA Ketone Negative Last Edit by Brie Lin MA on 05/16/24 15:29 UA Bilirubin 0 mg/dL Last Edit by Brie Lin MA on 05/16/24 15:29 UA Glucose 1000 mg/dL Last Edit by Brie Lin MA on 05/16/24 15:29 Results Reviewed Results Reviewed: Laboratory Last Values Urine pH (Auto) 5.0 05/16/24 15:26 Specific [place] (Auto) 1.015 05/16/24 15:26 Urine Protein (Auto) 0 mg/dL 05/16/24 15:26 Glucose (UA)(Auto) 1000 mg/dL 05/16/24 15:26 Urine Ketones (Auto) Negative 05/16/24 15:26 Urine Blood (Auto) 0 Denys/uL 05/16/24 15:26 Urine Nitrite (Auto) Negative 05/16/24 15:26 Urine Bilirubin (Auto) 0 mg/dL 05/16/24 15:26 Urine Urobilinogen (Auto) 0.2 mg/dL 05/16/24 15:26 Leukocyte Esterase (Auto) 0 Agustin/uL 05/16/24 15:26 Date of Service: 01/29/24 US PELVIS LIMITED (BLADDER) CLINICAL INFORMATION: Nocturnal polyuria. COMPARISON: Ultrasound abdomen January 29, 2024 TECHNIQUE: Real-time imaging of the bladder. FINDINGS: BLADDER: Well-distended. Bilateral ureteral jets are demonstrated. Prevoid bladder volume is 210 mL. Postvoid bladder volume is 14 mL. Diffuse trabeculation of bladder wall with thickening of 0.5 cm. Prostate volume 26 mL. IMPRESSION: Diffuse trabeculation of bladder wall with thickening of 0.5 cm. Prostate volume 26 mL. . Date of Service: 01/29/24 Procedure(s): US abdomen complete Accession Number(s): [id number] cc: Alem Pérez MD~ EXAMINATION: US ABDOMEN COMPLETE CLINICAL INFORMATION: Fatty (change of) liver, not elsewhere classified. COMPARISON: None available. TECHNIQUE: Real-time imaging of the abdominal viscera. FINDINGS: PANCREAS: Normal. ABDOMINAL AORTA: The proximal, mid, and distal segments are normal in caliber. INFERIOR VENA CAVA: Visualized portions are normal. LIVER: The liver is normal in size. The liver contour is normal. Increased echogenicity of the liver parenchyma, this can be seen in the setting of hepatic steatosis or liver parenchymal disease. No focal hepatic lesion. There is no intrahepatic biliary duct dilatation seen. GALLBLADDER: Normal. The gallbladder is physiologically distended without evidence of stones, sludge, polyps, wall thickening or pericholecystic fluid. COMMON BILE DUCT: Normal in caliber measuring 0.3 cm in diameter. RIGHT KIDNEY: Normal. No hydronephrosis. No renal calculi or focal parenchymal lesions. The kidney measures 10.9 cm in maximum dimension. LEFT KIDNEY: Large cyst 8.6 x 7.4 cm protruding from the upper pole. No hydronephrosis or renal calculi. The kidney measures 11.6 cm in maximum dimension. SPLEEN: Normal. The spleen measures 9.3 cm in maximum dimension. FREE FLUID: None. IMPRESSION: 1. Increased echogenicity of the liver parenchyma, this can be seen in the setting of hepatic steatosis or liver parenchymal disease. 2. Large cyst protruding from the upper pole left kidney 8.6 cm. Assessment & Plan Assessment & Plan (1) Renal cyst, left: Code(s): N28.1 - Cyst of kidney, acquired Category: Medical (2) BPH loc w urin obs/LUTS: Code(s): N40.1 - Benign prostatic hyperplasia with lower urinary tract symptoms Category: Medical Orders: Orders AMB Urinalysis Automated Today Z13.9 - Encounter for screening, unspecified US renal BI Today N28.1 - Cyst of kidney, acquired, N40.1 - Benign prostatic hyperplasia with lower urinary tract symptoms Medications: New alfuzosin ER administer after the same meal each day 10 mg PO DAILY 30 tabs 3RF Coding Diagnoses Renal cyst, left N28.1 BPH loc w urin obs/LUTS N40.1 CPT Codes Post Residual Void - PVR CPT Code: 10480-Dlsi Void Residual by ultrasound ([id number])
== END 2024-05-16 15:55 | disposition home or self-care (01) ==
PROVIDERS: PCP Internal Medicine; Visit Provider Urology
DX: Z13.9 Encounter for screening, unspecified (principal)

== ENCOUNTER → 2024-05-16 15:08 | Outpatient (BNVA) | payer OTHER, SELFPAY | PROVIDERS: PCP Internal Medicine; Visit Provider Urology | DX: N40.1 Benign prostatic hyperplasia with lower urinary tract symptoms (principal); R35.0 Frequency of micturition; R35.1 Nocturia; N28.1 Cyst of kidney, acquired | CPT/HCPCS: 51798; 81003; 99202 ==

== ENCOUNTER 2024-07-19 14:58 | Outpatient (REF) | payer OTHER, SELFPAY ==
--- NOTE | ~2024-07-19 | US_ITS ---
CLINICAL HISTORY: N28.1 - Cyst of kidney, acquired US Renal Comparison: None Findings: Right kidney normal size and echotexture, 10.4 cm length. Left kidney normal size and echotexture, 11.0 cm length. There is a thin-walled left renal 9.7 x 8.1 x 7.5 cm cystic mass with internal echoes, possible bosniak 2 F cyst. No hydronephrosis of either kidney. Normal color Doppler IMPRESSION: 1. Possible Bosniak 2 F left renal cyst. Recommended six-month follow-up renal ultrasound to reassess. This document has been electronically signed by: Rivera Hidalgo MD on 07/20/2024 08:56:57
== END 2024-07-19 14:59 | disposition home or self-care (01) ==
LOC: HO.US 14:58
PROVIDERS: PCP Internal Medicine; Visit Provider Urology
DX: N28.1 Cyst of kidney, acquired (principal); N40.1 Benign prostatic hyperplasia with lower urinary tract symptoms
CPT/HCPCS: 76775

== ENCOUNTER → 2024-07-19 15:00 | Outpatient (BNV) | payer OTHER, SELFPAY | PROVIDERS: PCP Internal Medicine; Visit Provider Specialist | DX: N28.1 Cyst of kidney, acquired (principal) | CPT/HCPCS: 76775 ==

== ENCOUNTER 2024-08-02 15:51 | Outpatient (AMB) | payer OTHER, SELFPAY ==
--- NOTE | 2024-08-02 15:56 | MHC.OFFVIS ---
Intake Visit Reasons: 3m/US Intake Note: Patient is present for 3 month follow up/US Renal US 07/19 Urology Meds:Alfuzosin Antibiotic Allergies: none Blood Thinners: none PVR:35ml Imaging Administrator Required: No Accompanied by: Family/Other Allergies semaglutide [From Ozempic] Adverse Reaction (Intermediate, Verified 08/02/24 15:58) Nausea and Vomiting HPI Comments Details: 08/02/24--Oh is a 68-year-old male who was initially evaluated in April 2024 he was started on alfuzosin for urinary symptoms of nocturia. He states he has noticed the medication is helping. I have discussed renal ultrasound results which note a complex left renal cyst. Will follow-up and re-evaluate septated renal cyst with last CT abdomen, renal mass protocol with and without IV contrast. The patient is on metformin we will follow the protocol and have him stop the metformin per radiology protocol. Cont Alfuzosin. Results: US renal - Left kidney 9.7 cm cyst with internal echoes, possible bosniak 2F. Needs further evaluation with CT w/wo IV contrast. 05/16/24-- Oh is a 68-year-old male presenting with concerns of urinary frequency, particularly nocturia, occurring four to five times per night. He reports this has been ongoing for the last two years. The patient speculates a connection between his symptoms and diabetes mellitus. Historical evaluations include a PSA and ultrasound, showing no significant prostate enlargement, but some bladder wall thickening was noted. The patient is on insulin and metformin, with Farxiga potentially causing excess glucose in urine. Tests showed no current infection or hematuria, although past tests noted protein in urine. Further ultrasounds for kidney assessments were advised. 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 COMPARISON: Ultrasound abdomen January 29, 2024 TECHNIQUE: Real-time imaging of the bladder. FINDINGS: BLADDER: Well-distended. Bilateral ureteral jets are demonstrated. Prevoid bladder volume is 210 mL. Postvoid bladder volume is 14 mL. Diffuse trabeculation of bladder wall with thickening of 0.5 cm. Prostate volume 26 mL. IMPRESSION: Diffuse trabeculation of bladder wall with thickening of 0.5 cm. Prostate volume 26 mL. . Date of Service: 01/29/24 EXAMINATION: US ABDOMEN COMPLETE CLINICAL INFORMATION: Fatty (change of) liver, not elsewhere classified. COMPARISON: None available. TECHNIQUE: Real-time imaging of the abdominal viscera. FINDINGS: PANCREAS: Normal. ABDOMINAL AORTA: The proximal, mid, and distal segments are normal in caliber. INFERIOR VENA CAVA: Visualized portions are normal. LIVER: The liver is normal in size. The liver contour is normal. Increased echogenicity of the liver parenchyma, this can be seen in the setting of hepatic steatosis or liver parenchymal disease. No focal hepatic lesion. There is no intrahepatic biliary duct dilatation seen. GALLBLADDER: Normal. The gallbladder is physiologically distended without evidence of stones, sludge, polyps, wall thickening or pericholecystic fluid. COMMON BILE DUCT: Normal in caliber measuring 0.3 cm in diameter. RIGHT KIDNEY: Normal. No hydronephrosis. No renal calculi or focal parenchymal lesions. The kidney measures 10.9 cm in maximum dimension. LEFT KIDNEY: Large cyst 8.6 x 7.4 cm protruding from the upper pole. No hydronephrosis or renal calculi. The kidney measures 11.6 cm in maximum dimension. SPLEEN: Normal. The spleen measures 9.3 cm in maximum dimension. FREE FLUID: None. IMPRESSION: 1. Increased echogenicity of the liver parenchyma, this can be seen in the setting of hepatic steatosis or liver parenchymal disease. 2. Large cyst protruding from the upper pole left kidney 8.6 cm. Assessment & Plan Assessment & Plan (1) Renal cyst, left: Code(s): N28.1 - Cyst of kidney, acquired Category: Medical (2) BPH loc w urin obs/LUTS: Code(s): N40.1 - Benign prostatic hyperplasia with lower urinary tract symptoms Category: Medical (3) Complex renal cyst: Code(s): N28.1 - Cyst of kidney, acquired Category: Medical Plan Will follow-up and re-evaluate septated renal cyst with last CT abdomen, renal mass protocol with and without IV contrast. The patient is on metformin we will follow the protocol and have him stop the metformin per radiology protocol. Cont Alfuzosin. Orders: Orders AMB Urinalysis Automated Today Z13.9 - Encounter for screening, unspecified CT abdomen wo/w IV con 4 Months N28.1 - Cyst of kidney, acquired Patient Instructions: The patient had an opportunity to ask questions regarding treatment plan. The patient expressed understanding and agreement with the above treatment plan. The patient is aware they should contact our office by phone for worsening of their current condition or the appearance of new symptoms. Compliance is encouraged with any medications and followup testing that is ordered. It is a privilege to be allowed the opportunity to participate in the urologic care of your patient. If you have any questions or concerns regarding treatment for the above conditions please do not hesitate to contact me. The office telephone contact is [phone]. This note is constructed in part using voice recognition software. While every effort has been made to ensure accuracy home restoration service cleaner errors may have been included. Yours sincerely, Ozzie Ennis MD Coding Diagnoses Renal cyst, left N28.1 BPH loc w urin obs/LUTS N40.1 Complex renal cyst N28.1 CPT Codes Post Residual Void - PVR CPT Code: 19867-Zohd Void Residual by ultrasound ([id number])
== END 2024-08-02 16:22 | disposition home or self-care (01) ==
LOC: HO.HUSH 15:51
PROVIDERS: PCP Internal Medicine; Visit Provider Urology
DX: Z13.9 Encounter for screening, unspecified (principal)

== ENCOUNTER → 2024-08-02 15:51 | Outpatient (BNVA) | payer OTHER, SELFPAY | PROVIDERS: PCP Internal Medicine; Visit Provider Urology | DX: N40.1 Benign prostatic hyperplasia with lower urinary tract symptoms (principal); N13.8 Other obstructive and reflux uropathy; R35.1 Nocturia; N28.1 Cyst of kidney, acquired; Z79.899 Other long term (current) drug therapy | CPT/HCPCS: 51798; 81003; 99212 ==

== ENCOUNTER 2024-08-09 14:11 | Outpatient (AMB) | payer OTHER, SELFPAY ==
--- NOTE | 2024-08-09 14:13 | A.OFFPC_ITS ---
Vital Signs 08/09/24 14:14 Height 6 ft Weight 193 lb BMI 26.2 BP 130/66 Blood Pressure Location Lt brachial Position Sitting Respiration 24 H Pulse 86 Pulse Source Pulse Oximeter Temp 98.4 F Temp Source Oral Pulse Oximetry (%) 96 Oxygen Delivery Method Room Air Intake Visit Reasons: Follow up on DM Intake Note: Pt is here today for his DM Allergies semaglutide [From Ozempic] Adverse Reaction (Intermediate, Verified 08/02/24 15:58) Nausea and Vomiting Medication List - Last Reconciled 08/09/24 by Alem Pérez MD alfuzosin ER 10 mg PO DAILY blood-glucose sensor (Solar Notion G7 Sensor device) As directed dapagliflozin propanediol 10 mg PO DAILY flash glucose sensor (Punch!Style Americo 14 Day Sensor kit) USE TO CHECK BLOOD SUGAR DAILY. CHANGE EVERY 14 DAYS insulin lispro (Humalog KwikPen (U-100) Insulin) 6 units (0.06 mL) subcut BID Lantus Solostar U-100 Insulin (insulin glargine) 40 units (0.4 mL) subcut QPM NS lisinopril 10 mg PO BID metformin ER 1,500 mg (2 x 750 mg) PO DAILY omeprazole 40 mg PO DAILY pen needle, diabetic (Comfort EZ Pen [place]) Use to inject insulin 4 times per day pravastatin 40 mg PO BEDTIME Tobacco use date assessed: 08/09/24 Fall risk assessment: 1 Fall in past year Dental Screening Dental Screen Date: 08/09/24 Did you have a dental visit in the last 12 months?: No Did you have a dental problem in the last 6 months where you did not have access to dental care?: No Was dental information given to patient?: No HPI Follow up on DM HPI0 Details Patient presents for the follow-up of type 2 diabetes hypertension hyperlipidemia. Patient reports blood glucose readings between 140-160 before meals. He has been taking 40 units of Lantus insulin and Humalog 6 units twice a day before meals. Patient denies hypoglycemia episodes. Patient reports dyspnea on exertion when doing strenuous physical activity. Patient has been exercising twice a week at the gym on the treadmill and stationary bike. He denies exercise induced chest pain or palpitations. 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[place] [facility] Housing: House Patient Tobacco Use Status: Former Tobacco user (10 years ago) Years Smoked: (onset 26yo, 2ppd x 31yrs, 60pyh, quit 02/2013) e-Cigarette/Vaping Use: Never Used service: No Current occupational status: retired Cognitive needs: No Hearing needs: No Vision needs: No Questionnaire Thrive Questionnaire Date Thrive assessed: 04/30/24 I am a: Patient What is your living situation today?: I have a steady place to live Within the past 12 months, did the food you bought not last and you didn't have the money to get more?: Never true Within the past 12 months, did you worry whether your food would run out before you got money to buy more?: Never true Do you have trouble paying for medicines?: No Do you have trouble getting transportation to medical appointments?: I choose not to answer this question Do you have trouble paying your heating and electricity bill?: No Do you have trouble taking care of your child, family member or friend?: No Do you have trouble with day-to-day activities such as bathing, preparing meals, shopping, managing finances, etc.?: No Are you currently unemployed and looking for a job?: Yes Are you interested in more education?: I choose not to answer this question Please select the resources that you would like help with: None Currently or been in a relationship where the following occur: No concerns reported THRIVE Score: 0 HALINA-7 AMB Questionnaire HALINA-7 Date HALINA - 7 assessed: 05/03/24 Source: Developed by Drs. Tapan Mak, Hallie Gaines, Kj Watkins and colleagues, with an educational lay from [employer]. Review of Systems Const All systems reviewed & are unremarkable except as noted in HPI and below Eyes Reports no additional complaints ENT Reports no additional complaints Card Reports no additional complaints Resp Reports no additional complaints GI Reports no additional complaints Reports no additional complaints Physical exam (Primary Care) Vital Signs: Last Vital Signs Temp 98.4 F 08/09/24 14:14 Pulse 86 08/09/24 14:14 Resp 24 H 08/09/24 14:14 BP 130/66 08/09/24 14:14 Pulse Ox 96 08/09/24 14:14 Oxygen Delivery Method Room Air 08/09/24 14:14 BMI result Body Mass Index 26.2 Tobacco/Smoking Status: Tobacco use Status Tobacco use date assessed 08/09/24 08/09/24 14:22 Patient Tobacco Use Status Former Tobacco user (10 08/09/24 14:14 years ago) e-Cigarette/Vaping Use Never Used 08/09/24 14:14 Thrive Assessment: Date of Thrive Assessment Date Thrive assessed 04/30/24 08/09/24 14:14 Currently or been in a relationship where the following occur: No concerns reported Const General: no acute distress HENMT Head: Yes normal to inspection Throat: Yes posterior oropharynx normal Eyes General: appearance normal, both eyes and all related structures Neck Neck: Yes supple Resp Effort & Inspection: normal respiratory effort Auscultation: clear to auscultation bilaterally Cardio Rhythm: regular rhythm Heart sounds: S1 normal heart sound present and S2 normal heart sound present GI Inspection: Yes normal to inspection Palpation (GI): Soft to palpation Percussion: Yes normal to percussion Auscultation: normal bowel sounds Extrem Other: Diabetic foot exam skin is intact monofilament and vibration sensation intact b/l Coding Level of Care Code Est Pt Level 4 (74115) Complex EM visit Add On G2211 Diagnoses EDUARDO (dyspnea on exertion) R06.09 COPD (chronic obstructive pulmonary disease) J44.9 Insulin dependent type 2 diabetes mellitus E11.9; Z79.4 HTN (hypertension) I10 Personal history of nicotine dependence Z87.891 Family hx of colon cancer Z80.0 Assessment & Plan Assessment & Plan (1) EDUARDO (dyspnea on exertion): Code(s): R06.09 - Other forms of dyspnea Category: Medical Plan: Obtain echocardiogram and PFT (2) COPD (chronic obstructive pulmonary disease): Comment: Chest CT consistent with emphysema, Code(s): J44.9 - Chronic obstructive pulmonary disease, unspecified Category: Medical Plan: Patient declined inhalers (3) Insulin dependent type 2 diabetes mellitus: Comment: For 25 years, patient intolerant to Ozempic cause nausea vomiting Code(s): E11.9 - Type 2 diabetes mellitus without complications; Z79.4 - residential (current) use of insulin Category: Medical Plan: A1c is 6.9. Patient will increase Humalog before meals to 8-10 units depending on carbohydrate load. Continue Lantus metformin and Farxiga. Follow-up in 3 months. patient was advised to schedule diabetic eye exam (4) HTN (hypertension): Code(s): I10 - Essential (primary) hypertension Category: Medical Plan: Continue Lisinopril (5) Personal history of nicotine dependence: Comment: (onset 26yo, 2ppd x 31yrs, 60pyh, quit 02/2013), LDCT 03/2024 emphysema, lung nodules 7.6 mm RML, 3 mm DWIGHT, 5 mm LLL, repeat CT 6 months Code(s): Z87.891 - Personal history of nicotine dependence Category: Medical Plan: In lung cancer screening program (6) Family hx of colon cancer: Comment: sister in 80'S, patient never had colonoscopy Code(s): Z80.0 - Family history of malignant neoplasm of digestive organs Category: Medical Plan: Referred to GI for colonoscopy Orders: Orders AMB Hemoglobin A1c Today E11.9 - Type 2 diabetes mellitus without complications, Z79.4 - residential (current) use of insulin PFT pulmonary function test Today J44.9 - Chronic obstructive pulmonary disease, unspecified, R06.09 - Other forms of dyspnea Lipid Panel 3 Months E11.9 - Type 2 diabetes mellitus without complications, I10 - Essential (primary) hypertension, J44.9 - Chronic obstructive pulmonary disease, unspecified, Z79.4 - 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 Panel Fast 3 Months E11.9 - Type 2 diabetes mellitus without complications, I10 - Essential (primary) hypertension, J44.9 - Chronic obstructive pulmonary disease, unspecified, Z79.4 - residential (current) use of i nsulin Complete Blood Count Auto Diff 3 Months E11.9 - Type 2 diabetes mellitus without complications, I10 - Essential (primary) hypertension, J44.9 - Chronic obstructive pulmonary disease, unspecified, Z79.4 - residential (current) use of insulin Hemoglobin A1c 3 Months E11.9 - Type 2 diabetes mellitus without complications, I10 - Essential (primary) hypertension, J44.9 - Chronic obstructive pulmonary disease, unspecified, Z79.4 - residential (current) use of insulin Referrals Gastroenterology Referral Z00.00 - Encounter for general adult medical examination without abnormal findings Medications: New pneumoc 20-mariela conj-dip cr(PF) 0.5 mL IM ONCE 0.5 mL 0RF Z23 - Encounter for immunization Changed From insulin lispro (Humalog KwikPen (U-100) Insulin) before lunch and dinner 6 units (0.06 mL) subcut BID 15 mL 2RF To insulin lispro (Humalog KwikPen (U-100) Insulin) 10 u subcutaneously 2 times a day; before lunch and dinner 15 mL 3RF Refilled dapagliflozin propanediol 10 mg PO DAILY 90 tabs 3RF pravastatin 40 mg PO BEDTIME 90 tabs 3RF lisinopril 10 mg PO BID 180 tabs 3RF metformin ER 1,500 mg (2 x 750 mg) PO DAILY 180 tabs 3RF
[2024-08-09 14:14] VITALS: BP 130/66; PULSE 86; RESP 24; TEMP 36.9; O2SAT 96; BMI 26.2
== END 2024-08-09 15:24 | disposition home or self-care (01) ==
LOC: HO.HMCC 14:12
PROVIDERS: PCP Internal Medicine; Visit Provider Internal Medicine
DX: R06.09 Other forms of dyspnea (principal); J44.9 Chronic obstructive pulmonary disease, unspecified; E11.9 Type 2 diabetes mellitus without complications; Z79.4 Long term (current) use of insulin; I10 Essential (primary) hypertension; Z87.891 Personal history of nicotine dependence; Z80.0 Family history of malignant neoplasm of digestive organs

== ENCOUNTER → 2024-08-09 14:11 | Outpatient (BNVA) | payer OTHER, SELFPAY | PROVIDERS: PCP Internal Medicine; Visit Provider Internal Medicine | DX: E11.9 Type 2 diabetes mellitus without complications (principal); R06.09 Other forms of dyspnea; J44.9 Chronic obstructive pulmonary disease, unspecified; I10 Essential (primary) hypertension; E78.5 Hyperlipidemia, unspecified; Z79.4 Long term (current) use of insulin; Z79.899 Other long term (current) drug therapy; Z87.891 Personal history of nicotine dependence; Z80.0 Family history of malignant neoplasm of digestive organs | CPT/HCPCS: 99212 ==

== ENCOUNTER → 2024-09-06 15:02 | Outpatient (REF) | payer OTHER, SELFPAY ==
--- NOTE | 2024-09-06 15:04 | CA_ITS ---
Transthoracic Echocardiogram Patient (Last, First, Middle): Oh Hugo, Gender: Male Date of : 1955 Age: 68 Procedure Date: 09/06/2024 Procedure Type: Transthoracic Echocardiogram Location: OP Height: 182.88 cm Weight: 87.54 kg BSA: 2.10 m2 Heart Rate: 85 bpm BP: 130 / 66 mmHg Manager Engagement: SB Referring MD: Alem Pérez MD Symptoms: R06.09 - Other forms of dyspnea Study Quality: Adequate w contrast ECG Rhythm: Sinus Conclusions: - Normal left ventricular size, thickness, systolic function, and wall motion. The visually estimated ejection fraction is between 60-65%. Diastolic function is normal for age. - Normal right ventricular cavity size and systolic function. Findings Procedure Information Contrast agent, definity, is being given per protocol without apparent complications. The quality of the study was technically difficult. The study quality is limited by lung artifact. Left Ventricle Normal left ventricular size, thickness, systolic function, and wall motion. The visually estimated ejection fraction is between 60-65%. Diastolic function is normal for age. Right Ventricle Normal right ventricular cavity size and systolic function. Atria The left atrium is normal in size. The right atrium was not well visualized. Aortic Valve Normal aortic valve structure and function. There is no aortic valve stenosis. There is no aortic valve regurgitation. Mitral Valve The mitral valve appears normal. There is no mitral valve regurgitation. There is no mitral valve stenosis. Pulmonic Valve The pulmonic valve is likely normal. Tricuspid Valve Normal tricuspid valve structure. There is no tricuspid valve regurgitation. Tricuspid regurgitation envelope is inadequate for calculation of right ventricular systolic pressure. Normal right atrial pressure. Great Vessels All visible segments of the aorta are normal in size. The visualized portions of the pulmonary artery and branches are normal. Venous The inferior vena cava is normal in size and collapses greater than 50% with inspiration. Pericardium/Pleural There is no evidence of pericardial effusion. Prior Study Comparison No prior study available for comparison. Measurements 2D Linear Measurements IVSd: 0.96 0.6-0.9/0.6-1.0 cm LVIDd: 4.25 3.9-5.3/4.2-5.9 cm LVIDd Index: 2.02 2.4-3.2/2.2-3.1 cm/m2 LVIDs: 2.91 2.0-3.6 cm LVPWd: 0.85 0.7-1.1 cm LA Diam: 3.50 2.7-3.8/3.0-4.0 cm LAIDs Index: 1.67 1.5-2.3 cm/m2 LV Mass: 151.04 67-162/88-224 g LV Mass Index: 71.92 43-95/49-115 g/m2 LVOT Diam: 2.30 3.0+(-)1.3 cm 2D Systolic Function EF 4C: 68.60 >55% EF 2C: 70.40 >55% EF BiP: 68.70 >55% Mitral Valve MV Pk E: 0.69 MV PK A: 0.77 MV Decel Time: 198.00 E/A: 0.90 E'Lateral: 8.27 E'Medial: 6.96 E/E' Med: 9.90 E/E' Lat: 8.30 PHT: 58.00 MVA PHT: 3.79 Decel Donley: 3.46 Aortic Valve AoV Pk Jordan: 1.24 AoV Pk Grad: 6.00 RYAN: 3.55 LVOT LVOT Pk Jordan: 1.07 LVOT Mn Jordan: 0.70 LVOT VTI: 0.18 LVOT Pk Grad: 5.00 LVOT Mn Grad: 2.00 LVOT Diam: 2.30 LVOT Area: 4.15 Diastolic Function MV Pk E: 0.69 MV Pk A: 0.77 E/A: 0.90 E'Medial: 6.96 E/E' Med: 9.90 E' Laterial: 8.27 E/E' Lat: 8.30 Right Ventricle TAPSE (mm): 20.90 TVS' Jordan: 14.10 Tricuspid Valve RA Press: 3.00 Great Vessels Aorta Sinus of Valsalva: 3.40 2.0-3.5 cm Ao Asc: 3.10 2.1-3.4 cm Pulmonary Veins Pulm Vein S/D 1.40 Pulmonary Valve PV Pk Jordan: 0.68 Peak PV Grad: 2.00 Updated in Other Vendor System with Status of Final Francis Cm MD electronically signed on 09/08/2024 11:22:22 PM with status of Final
== END ==
LOC: HO.CARD 15:02
PROVIDERS: PCP Internal Medicine; Visit Provider Internal Medicine
DX: R06.09 Other forms of dyspnea (principal); J44.9 Chronic obstructive pulmonary disease, unspecified
CPT/HCPCS: 93306; Q9957

== ENCOUNTER → 2024-09-06 15:04 | Outpatient (BNV) | payer OTHER, SELFPAY | PROVIDERS: PCP Internal Medicine; Visit Provider Internal Medicine Cardiovascular Disease | DX: R06.09 Other forms of dyspnea (principal) | CPT/HCPCS: 93306 ==

== ENCOUNTER 2024-10-03 16:21 | Outpatient (REF) | payer OTHER, SELFPAY ==
--- NOTE | ~2024-10-03 | CT_ITS ---
CLINICAL HISTORY: R91.1 - Solitary pulmonary nodule --- Additional Notes or Special Instructions: 7.6mm RML nodule - repeat LDCT 6m CT lung cancer screening (LDCT) Comparison: CT/SR - CT LUNG SCREENING - 03/29/24 10:46 EST Technique: Axial CT images of the chest using low-dose technique. Effective radiation dose total: DLP 56.8 mGycm, CTDIvol 1.4 mGy. Findings: Potential pulmonary nodule on prior study is again identified. This is slightly more conspicuous than on prior examination measuring up to 7 mm. As on the patient's prior study, this is perifissural in location. The appearance would favor a perifissural lymph node more so than a true pulmonary nodule. Unchanged juxtapleural pulmonary nodule within the left upper lobe measuring 3 mm in size on axial image number 112 Emphysematous changes are seen throughout the lungs with areas of likely scarring or atelectasis within the dependent portion of the lower lobes bilaterally. 8 mm densely calcified granulomas seen adjacent to the pleura in the right upper lobe. No new pulmonary nodules. No pleural effusion or pneumothorax. No enlarged lymph nodes. Mild bilateral gynecomastia. No free fluid or free air within the upper abdomen. Unchanged exophytic cyst off the upper pole of the left kidney. No acute bony abnormality. Impression: Slight increased conspicuity of the nodular density within the right lung abutting the right minor fissure. The appearance favors that this is a perifissural lymph node. However, given its increased conspicuity, an additional six-month follow up chest CT is suggested. Please see above for full details. Category 3: Probably benign. Six-month follow up chest CT suggested. Category 1: Normal; continue annual screening Category 2: Benign appearance or behavior, continue annual screening Category 3: Probably benign, [address] recommended Category 4A: Suspicious, [address] recommended; may consider PET/CT Category 4B: Suspicious, Additional diagnostics and/or tissue sampling recommended Category 4X: Suspicious, Additional diagnostics and/or tissue sampling recommended Category 0: Recalls (incomplete screen due to Incomplete coverage, Noise, Respiratory motion, Expiration, Obscured by acute abnormality) This document has been electronically signed by: Diomedes Campos MD on 10/04/2024 09:21:08
--- OUTSIDE RECORDS SUMMARY | 2024-10-03 16:26 | XMS_ITS | Clinical Summary ---
Author Organization [facility] [address] [facility] Address [address] [place] [address] Phone Care Team Providers Care Litigation Secretary Name Role Phone Alem Pérez MD Primary Care Provider [phone] Allergies Active Allergy Reactions Criticality Noted Date Comments Semaglutide 08/21/2024 Medications alfuzosin (UROXATRAL) 10 mg 24 hr tablet TAKE 1 TABLET BY MOUTH EVERY DAY ADMINISTER AFTER THE SAME MEAL EACH DAY 08/14/19 25 Active FreeStyle Lite Meter monitoring kit 03/08/20 24 Active blood sugar diagnostic (FreeStyle Lite Strips) test strip 03/08/20 24 Active FreeStyle Americo 14 Day Sensor kit USE TO CHECK BLOOD SUGAR DAILY. CHANGE EVERY 14 DAYS 07/13/19 25 Active Lantus Solostar U-100 Insulin 100 unit/mL (3 mL) injection pen 40 UNIT (0.4 ML) SUBCUTANEOUSLY EVERY EVENING 08/17/19 25 Active insulin lispro (HumaLOG KwikPen) 100 unit/mL injection pen INJECT 10 UNITS SUBCUTANEOUSLY 2 TIMES A DAY BEFORE LUNCH AND DINNER 08/10/19 25 Active lisinopriL (PRINIVIL,ZESTR IL) 10 mg tablet Take 1 tablet (10 mg total) by mouth 2 (two) times a day. 08/10/19 25 Active metFORMIN XR (GLUCOPHAGE-XR) 750 mg 24 hr tablet Take 1 tablet (750 mg total) by mouth 1 (one) time each day. 07/09/19 25 Active omeprazole (PriLOSEC) [address] capsule Take 1 capsule (40 mg total) by mouth 1 (one) time each day. 07/12/19 25 Active BD Ultra-Fine Short Pen Needle 31 gauge x 5/16 needle USE TO INJECT INSULIN 4 TIMES PER DAY 07/10/19 25 Active pravastatin (PRAVACHOL) 40 mg tablet Take 1 tablet (40 mg total) by mouth. at bedtime. 07/26/19 25 Active dapagliflozin propanediol (FARXIGA) 10 mg tablet Take 1 tablet (10 mg total) by mouth 1 (one) time each day. Active Encounters Date Type Department Care Team Description 08/21/2024 Telephone Gastroenterology - [address] [phone] Ronak Turner MD from Last 3 Months Social History Tobacco Use Types Packs/Day Years Used Date Smoking Tobacco: Never Assessed Sex and Gender Information Value Date Recorded Sex Assigned at Male 08/21/2024 2:10 PM EDT Legal Sex Male 2:06 PM EDT Gender Identity Male 08/21/2024 2:10 PM EDT Sexual Orientation Not on file Plan of Treatment Upcoming Encounters Date Type Department Care Team (Late st Contact Info) Description 11/12/2024 2:20 PM EDT Consult Gastroenterology - 299 [facility] [address] [phone] Melanie Newby PA [address] [address] Health Maintenance Due Date Last Done Comments DTaP,Tdap,and Td Vaccines (1 - Tdap) 12/17/1974 Pneumococcal Vaccine: 50+ Ye ars (1 of 1 - PCV) 12/17/2005 Zoster Vaccines (1 of 2) 12/17/2005 RSV Immunization Adult Patie nts (1 - Risk 60-74 years 1-dose series) 2015 COVID-19 Vaccine (1 - 2023-2 5 season) 2023 Abdominal Aortic Aneurysm (A AA) Screen 08/22/2024 Cholesterol Screening (Lipid Panel) 08/22/2024 Colorectal Cancer Screening: Colonoscopy 08/22/2024 Depression Screening 08/22/2024 Falls Risk Assessment 08/22/2024 Hepatitis C Screening 08/22/2024 Social Influencers of Health Screening 08/22/2024 Influenza Vaccine (#1) 2024 HIB Vaccines Aged Out No longer eligi ble based on patient's age to complete this topic HPV Vaccines Aged Out No longer eligi ble based on patient's age to complete this topic Hepatitis A Vaccines Aged Out No long er eligible based on patient's age to complete this topic Hepatitis B Vaccines Aged Out No long er eligible based on patient's age to complete this topic IPV Vaccines Aged Out No longer eligi ble based on patient's age to complete this topic MMR Vaccines Aged Out No longer eligi ble based on patient's age to complete this topic Meningococcal ACWY Vaccine Aged Out N o longer eligible based on patient's age to complete this topic Meningococcal B Vaccine Aged Out No l onger eligible based on patient's age to complete this topic RSV Immunization Patients Un kayla 20 months Aged Out No longer eligible b ased on patient's age to complete this topic Varicella Vaccines Aged Out No longer eligible based on patient's age to complete this topic Insurance [facility] PUBLIC PLANS [place] [id number] Care Teams Litigation Secretary Relationship Specialty Start Date End Date Alem Pérez MD PCP - General Internal Medicine 08/21/24
== END 2024-10-03 16:22 | disposition home or self-care (01) ==
LOC: HO.CT 16:21
PROVIDERS: PCP Internal Medicine; Visit Provider Physician Assistant Medical
DX: R91.1 Solitary pulmonary nodule (principal); Z87.891 Personal history of nicotine dependence
CPT/HCPCS: 71250

== ENCOUNTER → 2024-10-03 16:23 | Outpatient (BNV) | payer OTHER, SELFPAY | PROVIDERS: PCP Internal Medicine; Visit Provider Radiology Diagnostic Radiology | DX: R91.1 Solitary pulmonary nodule (principal); Z87.891 Personal history of nicotine dependence | CPT/HCPCS: 71250 ==

== ENCOUNTER 2024-11-01 15:01 | Outpatient (REF) | payer OTHER, SELFPAY ==
--- OUTSIDE RECORDS SUMMARY | 2024-11-01 15:02 | XMS_ITS | Clinical Summary ---
Author Organization [facility] 299 [facility] Address [address] [place] [address] Phone Care Team Providers Care Linen Manager Name Role Phone Alem Pérez MD Primary Care Provider [phone] Allergies Active Allergy Reactions Criticality Noted Date [...] Team Description 08/21/2024 Telephone Gastroenterology - [address] [phone] Ronak Turner MD from Last 3 Months [...] 2:20 PM EDT Consult Gastroenterology - 299 [facility] 299 [facility] [address] [place] [phone] Melanie Newby PA [address] [address] Health Maintenance Due Date Last Done Comments DTaP,Tdap,and Td Vaccines (1 - Tdap) 12/17/1974 Pneumococcal Vaccine: 50+ Ye ars (1 of 1 - PCV) 12/17/2005 Zoster Vaccines (1 of 2) 12/17/2005 RSV Immunization Adult Patie nts (1 - Risk 60-74 years 1-dose series) 2015 COVID-19 Vaccine (1 - 2023-2 5 season) 2023 Depression Screening 03/20/2024 Abdominal Aortic Aneurysm (A AA) Screen 08/22/2024 Cholesterol Screening (Lipid Panel) 08/22/2024 Colorectal Cancer Screening: Colonoscopy 08/22/2024 Falls Risk Assessment 08/22/2024 Hepatitis C [...] patient's age to complete this topic Insurance [facility] PUBLIC PLANS [place] [id number] Care Teams Linen Manager Relationship Specialty Start Date End Date Alem Pérez MD PCP - General Internal Medicine 08/21/24
--- NOTE | 2024-11-01 15:06 | PFT_ITS ---
Flows: FEV1: 95 % of predicted at 3.31 L FVC: 90 % of predicted at 4.15 L FEV1/FVC: 80 % Bronchodilator response: Absent Volumes: Total lung capacity: 94 % of predicted at 7.19 L Residual volume: 112 % of predicted at 2.99 L Slow vital capacity: 85 % of predicted at 4.21 L Expiratory reserve volume: 55 % of predicted at 0.75 L Diffusion capacity: Mildly decreased, corrects to normal after adjustment for alveolar ventilation. Impression: No obstructive or restrictive ventilatory defect. No bronchodilator response. Decreased expiratory reserve volume suggests extrathoracic restriction likely secondary to abdominal obesity. Decreased diffusion capacity suggests emphysema. MTDD
[2024-11-01 15:59] VITALS: PULSE 69; O2SAT 98
== END 2024-11-01 15:02 | disposition home or self-care (01) ==
LOC: HO.RESP 15:01
PROVIDERS: PCP Internal Medicine; Visit Provider Internal Medicine
DX: J44.9 Chronic obstructive pulmonary disease, unspecified (principal); R06.09 Other forms of dyspnea
CPT/HCPCS: 94010; 94640; 94727; 94729

== ENCOUNTER → 2024-11-01 15:06 | Outpatient (BNV) | payer OTHER, SELFPAY | PROVIDERS: PCP Internal Medicine; Visit Provider Internal Medicine Pulmonary Disease | DX: J44.9 Chronic obstructive pulmonary disease, unspecified (principal) | CPT/HCPCS: 94060; 94727; 94729 ==

== ENCOUNTER 2024-11-19 14:08 | Outpatient (AMB) | payer OTHER, SELFPAY ==
[2024-11-19 14:48] VITALS: BP 120/66; PULSE 74; RESP 19; TEMP 36.8; O2SAT 96; BMI 25.8
--- NOTE | 2024-11-19 14:48 | A.OFFPC_ITS ---
Vital Signs 11/19/24 14:48 Height 6 ft Weight 190 lb BMI 25.8 BP 120/66 Blood Pressure Location Lt brachial Position Sitting Respiration 19 Pulse 74 Pulse Source Pulse Oximeter Temp 98.2 F Temp Source Oral Pulse Oximetry (%) 96 Oxygen Delivery Method Room Air Intake Visit Reasons: Follow up on DM Intake Note: Pt is here today for a follow up visit o DM. Allergies semaglutide (From Ozempic) Adverse Reaction (Intermediate, Verified 11/19/24 14:48) Nausea and Vomiting Medication List - Last Reconciled 11/19/24 by Alem Pérez MD alfuzosin ER 10 mg PO DAILY blood-glucose sensor (Buru Buru G7 Sensor device) As directed dapagliflozin propanediol 10 mg PO DAILY flash glucose sensor (TravelataStyle Americo 14 Day Sensor kit) USE TO CHECK BLOOD SUGAR DAILY. CHANGE EVERY 14 DAYS insulin lispro (Humalog KwikPen (U-100) Insulin) 10 u subcutaneously 2 times a day; before lunch and dinner Lantus Solostar U-100 Insulin (insulin glargine) 40 units (0.4 mL) subcut QPM NS lisinopril 10 mg PO BID metformin ER 1,500 mg (2 x 750 mg) PO DAILY omeprazole 40 mg PO DAILY pen needle, diabetic (Comfort EZ Pen [place]) Use to inject insulin 4 times per day pravastatin 40 mg PO BEDTIME Tobacco use date assessed: 11/19/24 Fall risk assessment: 1 Fall in past year Last assessed Fall Risk: 11/19/24 Dental Screening Dental Screen Date: 11/19/24 Did you have a dental visit in the last 12 months?: Yes Did you have a dental problem in the last 6 months where you did not have access to dental care?: No Was dental information given to patient?: Patient has dentist HPI Follow up on DM HPI Details PATIENT PRESENTS FOR THE FOLLOW-UP of type 2 diabetes hypertension hyperlipidemia. He reports persistent dyspnea on exertion and chest tightness when exercising walking up the stairs. PFTs showed mildly decreased diffusion capacity but no obstruction or restriction. Patient denies PND orthopnea palpitations. 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 [employer] Housing: House Patient Tobacco Use Status: Former Tobacco user (10 years ago) Years Smoked: (onset 26yo, 2ppd x 31yrs, 60pyh, quit 02/2013) e-Cigarette/Vaping Use: Never Used service: No Current occupational status: retired Cognitive needs: No Hearing needs: No Vision needs: No Questionnaire Thrive Questionnaire Date Thrive assessed: 04/30/24 I am a: Patient What is your living situation today?: I have a steady place to live Within the past 12 months, did the food you bought not last and you didn't have the money to get more?: Never true Within the past 12 months, did you worry whether your food would run out before you got money to buy more?: Never true Do you have trouble paying for medicines?: No Do you have trouble getting transportation to medical appointments?: I choose not to answer this question Do you have trouble paying your heating and electricity bill?: No Do you have trouble taking care of your child, family member or friend?: No Do you have trouble with day-to-day activities such as bathing, preparing meals, shopping, managing finances, etc.?: No Are you currently unemployed and looking for a job?: Yes Are you interested in more education?: I choose not to answer this question Please select the resources that you would like help with: None Currently or been in a relationship where the following occur: No concerns reported THRIVE Score: 0 HALINA-7 AMB Questionnaire HALINA-7 Date HALINA - 7 assessed: 05/03/24 Source: Developed by Drs. Tapan Mak, Hallie Gaines, Kj Watkins and colleagues, with an educational lay from [employer] Review of Systems Const All systems reviewed & are unremarkable except as noted in HPI and below Eyes Reports no additional complaints ENT Reports no additional complaints Card Reports no additional complaints Resp Reports no additional complaints GI Reports no additional complaints Reports no additional complaints Physical exam (Primary Care) Vital Signs: Last Vital Signs Temp 98.2 F 11/19/24 14:48 Pulse 74 11/19/24 14:48 Resp 19 11/19/24 14:48 BP 120/66 11/19/24 14:48 Pulse Ox 96 11/19/24 14:48 Oxygen Delivery Method Room Air 11/19/24 14:48 BMI result Body Mass Index 25.8 Tobacco/Smoking Status: Tobacco use Status Tobacco use date assessed 11/19/24 11/19/24 14:49 Patient Tobacco Use Status Former Tobacco user (10 11/19/24 14:49 years ago) e-Cigarette/Vaping Use Never Used 11/19/24 14:49 Thrive Assessment: Date of Thrive Assessment Date Thrive assessed 04/30/24 11/19/24 14:49 Currently or been in a relationship where the following occur: No concerns reported Const General: no acute distress HENMT Head: Yes normal to inspection Mouth: Normal oral and palatal mucosa present Eyes General: appearance normal, both eyes and all related structures Neck Neck: Yes supple Resp Effort & Inspection: normal respiratory effort Auscultation: clear to auscultation bilaterally Cardio Rhythm: regular rhythm Heart sounds: S1 normal heart sound present and S2 normal heart sound present GI Inspection: Yes normal to inspection Palpation (GI): Soft to palpation Percussion: Yes normal to percussion Auscultation: normal bowel sounds Coding Level of Care Code Est Pt Level 4 (67454) Diagnoses HTN (hypertension) I10 Insulin dependent type 2 diabetes mellitus E11.9; Z79.4 COPD (chronic obstructive pulmonary disease) J44.9 EDUARDO (dyspnea on exertion) R06.09 Assessment & Plan Assessment & Plan (1) HTN (hypertension): Code(s): I10 - Essential (primary) hypertension Category: Medical Plan: Continue current medications (2) Insulin dependent type 2 diabetes mellitus: Comment: For 25 years, patient intolerant to Ozempic cause nausea vomiting Code(s): E11.9 - Type 2 diabetes mellitus without complications; Z79.4 - half-way (current) use of insulin Category: Medical Plan: Continue current medications ADA diet regular physical activity follow-up in 3 months with a fasting labs including A1c (3) COPD (chronic obstructive pulmonary disease): Comment: Chest CT consistent with emphysema, PFT 10/2024 mildly decreased diffusing capacity consistent with emphysema, no obstruction or restriction, decreased exp iratory reserve volume suggesting extrathoracic restriction like abdominal obesity Code(s): J44.9 - Chronic obstructive pulmonary disease, unspecified Category: Medical Plan: Stable (4) EDUARDO (dyspnea on exertion): Code(s): R06.09 - Other forms of dyspnea Category: Medical Plan: Obtain nuclear stress test to evaluate for exercise-induced angina/ ischemia. Orders: Orders Complete Blood Count Auto Diff 3 Months E11.9 - Type 2 diabetes mellitus without complications, I10 - Essential (primary) hypertension, J44.9 - Chronic obstructive pulmonary disease, unspecified, Z79.4 - intermediate project manager (current) use of insulin Lipid Panel 3 Months E11.9 - Type 2 diabetes mellitus without complications, I10 - Essential (primary) hypertension, J44.9 - Chronic obstructive pulmonary disease, unspecified, Z79.4 - intermediate project manager (current) use of insulin NM cardiolite stress test Today I20.89 - Other forms of angina pectoris, R06.09 - Other forms of dyspnea Comprehensive [place]. Panel Fast 3 Months E11.9 - Type 2 diabetes mellitus without complications, I10 - Essential (primary) hypertension, J44.9 - Chronic obstructive pulmonary disease, unspecified, Z79.4 - intermediate project manager (current) use of insulin Hemoglobin A1c 3 Months E11.9 - Type 2 diabetes mellitus without complications, I10 - Essential (primary) hypertension, J44.9 - Chronic obstructive pulmonary disease, unspecified, Z79.4 - intermediate project manager (current) use of insulin Microalbumin, Random (w Creat) 3 Months E11.9 - Type 2 diabetes mellitus without complications, I10 - Essential (primary) hypertension, J44.9 - Chronic obstructive pulmonary disease, unspecified, Z79.4 - intermediate project manager (current) use of insulin CA stress test Today I20.89 - Other forms of angina pectoris, R06.09 - Other forms of dyspnea
--- OUTSIDE RECORDS SUMMARY | 2024-11-19 15:22 | XMS_ITS | Encounter Summary ---
Author Organization [facility] Address [address] [place] [address] Care Team Providers Care Underwriting Director Name Role Phone Alem Pérez MD Primary Care Provider [phone] Encounter Details Date Type Department Care Team (Late st Contact Info) Description 11/12/2024 Telephone Gastroenterology - [address] [place] [address] Ronak Turner MD [address] [place] [phone] Social History Tobacco Use Types Packs/Day Years Used Date Smoking Tobacco: Former Cigarettes Smokeless Tobacco: Former Alcohol Use Standard Drinks/Week Comments Not Currently 0 (1 standard drink = 0.6 oz pur e alcohol) Vodka daily Sex and Gender Information Value Date Recorded Sex Assigned at Male 08/21/2024 2:10 PM EDT Legal Sex Male 2:06 PM EDT Gender Identity Male 08/21/2024 2:10 PM EDT Sexual Orientation Not on file documented as of this encounter Progress Notes * Radha Ghosh - 11/14/2024 8:44 AM EDT SCHEDULED. * Radha Ghosh - 11/12/2024 3:44 PM EDT 1st attempt to reach patient to schedule appointment. Left message to call back. * Kasandra Geiger - 11/12/2024 3:17 PM EDT ----- Message from BREANA Meeks sent at 11/12/2024 2:48 PM EDT ----- Book colon/egd Dx: GERD, regurgitation, screening colon, fhx crc New pt Gallon prep 1/2 evening insulin day prior, skip am insulin day of procedure, hold metformin 24 hours prior, hold farxiga 3 days prior Follow up as needed documented in this encounter Plan of Treatment Upcoming Encounters Date Type Department Care Team (Late st Contact Info) Description 12/13/2024 10:30 AM EDT Appointment [facility] [address] [place] [address] Adrian Sorto MD [address] [place] [phone] documented as of this encounter Visit Diagnoses Not on filedocumented in this encounter Care Teams Underwriting Director Relationship Specialty Start Date End Date Alem Pérez MD [address] [place] [phone] PCP - General Internal Medicine 08/21/24 documented as of this encounter
--- OUTSIDE RECORDS SUMMARY | 2024-11-19 15:22 | XMS_ITS | Clinical Summary ---
Author Organization [facility] Address [address] [place] [address] Phone Care Team Providers Care Design Quality Engineer Name Role Phone Alem Pérez MD Primary Care Provider [phone] Allergies Active Allergy Reactions Criticality Noted Date Comments Semaglutide Nausea And Vomiting 08/21/2024 Medications alfuzosin (UROXATRAL) 10 mg 24 hr tablet TAKE 1 TABLET BY MOUTH EVERY DAY ADMINISTER AFTER THE SAME MEAL EACH DAY 08/14/19 25 Active FreeStyle Lite Meter monitoring kit 03/08/20 Active blood sugar diagnostic (FreeStyle Lite Strips) [...] 1 capsule (40 mg total) by mouth if needed. 07/12/19 25 Active BD Ultra-Fine Short Pen Needle 31 gauge x 5/16 needle USE TO INJECT INSULIN 4 TIMES PER DAY 07/10/19 25 Active pravastatin (PRAVACHOL) 40 mg tablet Take 1 tablet (40 mg total) by mouth. at bedtime. 07/26/19 25 Active dapagliflozin propanediol (FARXIGA) 10 mg tablet Take 1 tablet (10 mg total) by mouth 1 (one) time each day. Active Active Problems Problem Noted Date Diagnosed Date T2DM (type 2 diabetes mellitus) (CMS/[facility] V24, CM S/[facility] V28) 11/12/2024 HTN (hypertension) 11/12/2024 Encounters Date Type Department Care Team Description 11/12/2024 2:20 PM EDT Consult Gastroenterology - [address] [phone] Melanie Newby PA Gastroesophageal reflux disease, unspecified whether esophagitis present (Primary Dx); Colon cancer screening 11/12/2024 Telephone Gastroenterology - [address] [phone] Ronak Turner MD 08/21/2024 Telephone Gastroenterology - [address] [phone] Ronak Turner MD from Last 3 Months Surgical History Surgery Date Site/Laterality Comments KNEE SURGERY Family History Medical History Relation Name Comments Colon cancer Sister Relation Name Status Comments Sister Alive Social History Tobacco Use Types Packs/Day Years Used Date Smoking Tobacco: Former Cigarettes Smokeless Tobacco: Former Tobacco Cessation:Counseling Given: Not Answered Alcohol Use Standard Drinks/Week Comments Not Currently 0 (1 standard drink = 0.6 oz pur e alcohol) Vodka daily Sex and Gender Information Value Date Recorded Sex Assigned at Male 08/21/2024 2:10 PM EDT Legal Sex Male 2:06 PM EDT Gender Identity Male 08/21/2024 2:10 PM EDT Sexual Orientation Not on file Obstetrics History Last Filed Vital Signs Vital Sign Reading Time Taken Comments Blood Pressure - - Pulse - - Temperature - - Respiratory Rate - - Oxygen Saturation - - Inhaled Oxygen Concentration - - Weight 85.3 kg (188 lb) 11/12/2024 2:21 PM EDT Height 182.9 cm (6') 11/12/2024 2:21 PM EDT Body Mass Index 25.5 11/12/2024 2:21 PM EDT Plan of Treatment Upcoming Encounters Date Type Department Care Team (Late st Contact Info) Description 12/13/2024 10:30 AM EDT Appointment [facility] Endoscopy [address] [place] [address] Adrian Sorto MD [address] [place] [phone] Health Maintenance Due Date Last Done Comments Diabetes: Annual GFR (Glomerular Filtration Rate) 1955 Diabetes: Annual Foot Exam 12/17/1965 Diabetes: Annual Retina Eye Exam 12/17/1965 DTaP,Tdap,and Td Vaccines (1 - Tdap) 12/17/1974 Pneumococcal Vaccine: 50+ Years (1 of 2 - PCV) 12/17/1974 Zoster Vaccines (1 of 2) 12/17/2005 RSV Immunization Adult Patients (1 - Risk 60-74 years 1-dose series) 2015 Depression Screening 03/20/2024 Abdominal Aortic Aneurysm (AAA) Screen 08/22/2024 Cholesterol Screening (Lipid Panel) 08/22/2024 Colorectal Cancer Screening: Colonoscopy 08/22/2024 Falls Risk Assessment 08/22/2024 Hepatitis C Screening 08/22/2024 Social Influencers of Health Screening 08/22/2024 Diabetes: Annual Urine Albumin-Creatinine Ratio (uACR) 11/12/2024 Diabetes: Blood Sugar Contro l Test (HGBA1C) 11/12/2024 Hypertension/CHF/CAD Annual BMP Blood Test 11/12/2024 Influenza Vaccine (#1) 2024 01/06/2024 COVID-19 Vaccine Completed 07/08/2024, 11/20/2023 HIB Vaccines Aged Out No longer eligi [...] to complete this topic RSV Immunization Patients Under 20 months Aged Out No longer eligible b ased on patient's age to complete this topic Varicella Vaccines Aged Out No longer eligible based on patient's age to complete this topic Insurance [facility] [employer] [place] [id number] Care Teams Design Quality Engineer Relationship Specialty Start Date End Date Alem Pérez MD [address] [facility] [place] [address] PCP - General Internal Medicine 08/21/24
== END 2024-11-19 15:52 | disposition home or self-care (01) ==
LOC: HO.HMCC 14:09
PROVIDERS: PCP Internal Medicine; Visit Provider Internal Medicine
DX: I10 Essential (primary) hypertension (principal); E11.9 Type 2 diabetes mellitus without complications; Z79.4 Long term (current) use of insulin; J44.9 Chronic obstructive pulmonary disease, unspecified; R06.09 Other forms of dyspnea

== ENCOUNTER → 2024-11-19 14:08 | Outpatient (BNVA) | payer OTHER, SELFPAY | PROVIDERS: PCP Internal Medicine; Visit Provider Internal Medicine | DX: E11.9 Type 2 diabetes mellitus without complications (principal); I10 Essential (primary) hypertension; E78.5 Hyperlipidemia, unspecified; R06.00 Dyspnea, unspecified; J44.9 Chronic obstructive pulmonary disease, unspecified; R06.09 Other forms of dyspnea; I20.89 Other forms of angina pectoris; Z79.4 Long term (current) use of insulin | CPT/HCPCS: 99212 ==

== ENCOUNTER 2025-01-06 13:12 | Outpatient (AMB) | payer OTHER, SELFPAY ==
[2025-01-06 13:19] VITALS: BP 130/68; PULSE 85; RESP 17; TEMP 36.7; O2SAT 95; BMI 25.8
--- NOTE | 2025-01-06 13:19 | A.OFFPC_ITS ---
Vital Signs 01/06/25 13:19 Height 6 ft Weight 190 lb BMI 25.8 BP 130/68 Blood Pressure Location Rt brachial Position Sitting Respiration 17 Pulse 85 Pulse Source Pulse Oximeter Temp 98.1 F Temp Source Oral Pulse Oximetry (%) 95 Oxygen Delivery Method Room Air Intake Visit Reasons: Annual PE Intake Note: Pt is here today for PE. Allergies semaglutide (From Ozempic) Adverse Reaction (Intermediate, Verified 01/06/25 13:19) Nausea and Vomiting Medication List - Last Reconciled 01/06/25 by Alem Pérez MD alfuzosin ER 10 mg PO DAILY blood-glucose sensor (Bplats G7 Sensor device) As directed dapagliflozin propanediol 10 mg PO DAILY flash glucose sensor (SkillPixelsStyle Americo 14 Day Sensor kit) USE TO CHECK BLOOD SUGAR DAILY. CHANGE EVERY 14 DAYS insulin lispro (Humalog KwikPen (U-100) Insulin) 10 u subcutaneously 2 times a day; before lunch and dinner Lantus Solostar U-100 Insulin (insulin glargine) 40 units (0.4 mL) subcut QPM NS lisinopril 10 mg PO BID metformin ER 1,500 mg (2 x 750 mg) PO DAILY omeprazole 40 mg PO DAILY pen needle, diabetic (Comfort EZ Pen [place]) Use to inject insulin 4 times per day pravastatin 40 mg PO BEDTIME Tobacco use date assessed: 01/06/25 Fall risk assessment: No Falls in past year Last assessed Fall Risk: 01/06/25 Dental Screening Dental Screen Date: 11/19/24 HPI Annual PE HPI0 Details Patient presents for physical. He reports frequent urination at night getting up 3 times a night and having difficulty falling asleep. Patient denies anxiety and depression. He drinks 2 shots of hard liquor before bedtime every night. Patient is going to [facility] in January for 1 month. 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 1. Little interest or pleasure in doing things: several days 2. Feeling down, depressed, or hopeless: several days 3. Trouble falling or staying asleep, or sleeping too much: several days 4. Feeling tired or having little energy: not at all 5. Poor appetite or overeating: not at all 6. Feeling bad about yourself - or that you are a failure or have let yourself or your family down: not at all 7. Trouble concentrating on things, such as reading the newspaper or watching television: several days 8. Moving or speaking so slowly that other people could have noticed. Or the opposite - being so fidgety or restless that you have been moving around a lot more than usual: not at all 9. Thoughts that you would be better off or of hurting yourself in some way: not at all Total score: 4 Depression Screening Interpretation: Negative Depression Screening Done: Yes Source: Developed by Drs. Tapan Mak, Hallie Gaines, Kj Watkins and colleagues, with an educational lay from [employer]. Thrive Questionnaire Date Thrive assessed: 04/30/24 I am a: Patient What is your living situation today?: I have a steady place to live Within the past 12 months, did the food you bought not last and you didn't have the money to get more?: Never true Within the past 12 months, did you worry whether your food would run out before you got money to buy more?: Never true Do you have trouble paying for medicines?: No Do you have trouble getting transportation to medical appointments?: I choose not to answer this question Do you have trouble paying your heating and electricity bill?: No Do you have trouble taking care of your child, family member or friend?: No Do you have trouble with day-to-day activities such as bathing, preparing meals, shopping, managing finances, etc.?: No Are you currently unemployed and looking for a job?: Yes Are you interested in more education?: I choose not to answer this question Please select the resources that you would like help with: None Currently or been in a relationship where the following occur: No concerns reported THRIVE Score: 0 HALINA-7 AMB Questionnaire HALINA-7 Date HALINA - 7 assessed: 05/03/24 Feeling nervous, anxious, or on edge: 0 = Not at all Not being able to stop or control worryin = Not at all Worrying too much about different things: 0 = Not at all Trouble relaxin = Not at all Being so restless that it is hard to sit still: 0 = Not at all Becoming easily annoyed or irritable: 0 = Not at all Feeling afraid as if something awful might happen: 0 = Not at all Total HALINA-7 score (0-4 normal; 5-9 mild; 10-14 moderate; 15-21 severe): 0 Source: Developed by Drs. Tapan Mak, Hallie Gaines, Kj Watkins and colleagues, with an educational lay from [employer]. Review of Systems Const All systems reviewed & are unremarkable except as noted in HPI and below Eyes Reports no additional complaints ENT Reports no additional complaints Card Reports no additional complaints Resp Reports no additional complaints GI Reports no additional complaints Reports no additional complaints Physical exam (Primary Care) Vital Signs: Last Vital Signs Temp 98.1 F 01/06/25 13:19 Pulse 85 01/06/25 13:19 Resp 17 01/06/25 13:19 BP 130/68 01/06/25 13:19 Pulse Ox 95 01/06/25 13:19 Oxygen Delivery Method Room Air 01/06/25 13:19 BMI result Body Mass Index 25.8 Tobacco/Smoking Status: Tobacco use Status Tobacco use date assessed 01/06/25 01/06/25 13:19 Patient Tobacco Use Status Former Tobacco user (01/06/25 13:19 years ago) e-Cigarette/Vaping Use Never Used 01/06/25 13:19 PHQ-9: PHQ-9 Score PHQ-9: Total score 4 01/06/25 13:32 Depression Screening Interpretation: Negative Thrive Assessment: Date of Thrive Assessment Date Thrive assessed 04/30/24 01/06/25 13:19 Currently or been in a relationship where the following occur: No concerns reported Const General: no acute distress HENMT Head: Yes normal to inspection Ears: TM's normal bilaterally Face and sinus: Yes normal facial exam Eyes General: appearance normal, both eyes and all related structures Neck Neck: Yes no lymphadenopathy and Yes supple Resp Effort & Inspection: normal respiratory effort Auscultation: clear to auscultation bilaterally Cardio Rhythm: regular rhythm Heart sounds: S1 normal heart sound present and S2 normal heart sound present GI Inspection: Yes normal to inspection Palpation (GI): Soft to palpation Percussion: Yes normal to percussion Auscultation: normal bowel sounds Extrem Other: Diabetic foot exam skin is intact monofilament and vibration sensation intact bilaterally General: Yes no clubbing, cyanosis or edema Coding Level of Care Code Est Pt Prev Care >65y(93370) Diagnoses HTN (hypertension) I10 Insulin dependent type 2 diabetes mellitus E11.9; Z79.4 COPD (chronic obstructive pulmonary disease) J44.9 EDUARDO (dyspnea on exertion) R06.09 Annual physical exam Z00.00 Assessment & Plan Assessment & Plan (1) HTN (hypertension): Code(s): I10 - Essential (primary) hypertension Category: Medical Plan: Continue current medications (2) Insulin dependent type 2 diabetes mellitus: Comment: For 25 years, patient intolerant to Ozempic cause nausea vomiting Code(s): E11.9 - Type 2 diabetes mellitus without complications; Z79.4 - [facility] (current) use of insulin Category: Medical Plan: Patient reports better glycemic control overall but did not bring his freestyle Americo readings. He will return for fasting blood work including A1c. Adding GLP 1 agonist to improve glycemic control discussed with the patient he will like to postpone it until his trip to [place]. Patient will follow-up in 3 (3) COPD (chronic obstructive pulmonary disease): Comment: Chest CT consistent with emphysema, PFT 10/2024 mildly decreased diffusing capacity consistent with emphysema, no obstruction or restriction, decreased expiratory reserve volume suggesting extrathoracic restriction like abdominal obesity Code(s): J44.9 - Chronic obstructive pulmonary disease, unspecified Category: Medical Plan: No need for inhalers (4) EDUARDO (dyspnea on exertion): Code(s): R06.09 - Other forms of dyspnea Category: Medical Plan: Patient will have nuclear stress test to rule out angina (5) Annual physical exam: Code(s): Z00.00 - Encounter for general adult medical examination without abnormal findings Category: Medical Plan: Well-balanced diet regular physical activity discussed with the patient. He had a colonoscopy consistent with multiple polyps and repeated 1 in 1 year was recommended Orders: Orders Comprehensive [place]. 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 Microalbumin, Random (w Creat) 3 Months E11.9 - Type 2 diabetes mellitus without complications, I10 - Essential (primary) hypertension, J44.9 - Chronic obstructive pulmonary disease, unspecified, 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
--- OUTSIDE RECORDS SUMMARY | 2025-01-06 16:08 | XMS_ITS | Clinical Summary ---
Author Organization [facility] 299 [facility] Address [address] [place] [address] Phone Care Team Providers Care Vice Chair Name Role Phone Alem Pérez MD Primary Care Provider [phone] Allergies Active Allergy Reactions Criticality Noted Date [...] mouth 1 (one) time each day. Active polyethylene glycol (Golytely) 236-22.74-6.74 -5.86 gram solution Take 4L by mouth once for one dose. May substitue any PEG. Starting at 2PM the day before your procedure drink 1 8oz glasses at your own pace until you complete half of the gallon. Finish 2nd half of the gallon at 8PM. 4000 mL 11/30/19 25 Active bisacodyL (DULCOLAX) 5 mg EC tablet Take 2 tablets by mouth right before beginning bowel prep. See instructions provided by the office 2 tablet 11/30/19 Active Active Problems Problem Noted Date Diagnosed Date T2DM (type 2 diabetes mellitus) (CMS/HCC V24, CM S/[facility] V28) 11/12/2024 HTN (hypertension) 11/12/2024 Encounters Date Type Department Care Team Description 12/16/2024 Results Follow-Up Gastroenterology - [address] [place] [id number] [place], [place] 12/13/2024 10:21 AM EDT Anesthesia Event [facility] Endoscopy [address] [place] [address] Dougie Mederos MD Walsh, Michael, DO 12/13/2024 9:39 AM EDT - 12/13/2024 11:59 PM EDT Hospital Encounter [facility] Endoscopy [address] [place] [address] Adrian Sorto MD Dickman, Christy L, CRNA Dasilva, John E, MD Gastroesophageal reflux disease, unspecified whether esophagitis present; Family hx of colon cancer Discharge Disposition: Home or Self Care 11/12/2024 2:20 PM EDT Consult Gastroenterology - [address] [address] Melanie Newby PA Gastroesophageal reflux disease, unspecified whether esophagitis present (Primary Dx); Colon cancer screening 11/12/2024 Telephone Gastroenterology - 299 [facility] 299 [facility] [address] [place] [address] Ronak Turner MD from Last 3 Months Surgical History Surgery Date Site/Laterality Comments KNEE SURGERY EYE SURGERY Medical History Medical History Date Comments Hyperlipidemia Hypertension Family History Medical History Relation Name Comments Colon cancer Sister Relation Name Status Comments Sister Alive Social History Tobacco Use Types Packs/Day Years Used Date Smoking Tobacco: Former Cigarettes Smokeless Tobacco: Former Tobacco Cessation:Counseling Given: Not Answered Alcohol Use Standard Drinks/Week Comments Not Currently 0 (1 standard drink = 0.6 oz pur e alcohol) Vodka daily Interpersonal Safety Answer Date Record ed Physical Abuse Unrecognized value 12/13/2024 Verbal Abuse Unrecognized value 12/13/2024 Sex and Gender Information Value Date Recorded Sex Assigned at Male 08/21/2024 2:10 PM EDT Legal Sex Male 2:06 PM EDT Gender Identity Male 08/21/2024 2:10 PM EDT Sexual Orientation Not on file Obstetrics History Last Filed Vital Signs Vital Sign Reading Time Taken Comments Blood Pressure 124/82 12/13/2024 11:09 AM EDT Pulse 79 12/13/2024 11:09 AM EDT Temperature 36.2 C (97.2 F) 12/13/2024 10:49 AM EDT Respiratory Rate 17 12/13/2024 11:09 AM EDT Oxygen Saturation 98% 12/13/2024 11:09 AM EDT Inhaled Oxygen Concentration - - Weight 82.6 kg (182 lb) 12/13/2024 9:57 AM EDT Height 182.9 cm (6') 12/13/2024 9:57 AM EDT Body Mass Index 24.68 12/13/2024 9:57 AM EDT Plan of Treatment Health Maintenance Due Date Last Done Comments Diabetes: Annual GFR (Glomerular Filtration Rate) 1955 Diabetes: Annual Foot Exam 12/17/1965 Diabetes: Annual Retina Eye Exam 12/17/1965 DTaP,Tdap,and Td Vaccines (1 - Tdap) 12/17/1974 Pneumococcal Vaccine: 50+ Years (1 of 2 - PCV) 12/17/1974 RSV Immunization Adult Patients (1 - Risk 50-74 years 1-dose series) 12/17/2005 Zoster Vaccines (1 of 2) 12/17/2005 Depression Screening 03/20/2024 Abdominal Aortic Aneurysm (AAA) Screen 08/22/2024 Cholesterol Screening (Lipid Panel) 08/22/2024 Hepatitis C Screening 08/22/2024 Social Influencers of Health Screening 08/22/2024 Diabetes: Annual Urine Albumin-Creatinine Ratio (uACR) 11/12/2024 Diabetes: Blood Sugar Contro l Test (HGBA1C) 11/12/2024 Hypertension/CHF/CAD Annual BMP Blood Test 11/12/2024 Influenza Vaccine (#1) 2024 01/06/2024 Colorectal Cancer Screening: Colonoscopy 12/13/2025 12/13/2024 Falls Risk Assessment 12/13/2025 12/13/2024 COVID-19 Vaccine Completed 07/08/2024, 11/20/2023 HIB Vaccines [...] on patient's age to complete this topic Procedures Procedure Name Priority Date/Time Associated Diagnosis Comments COLONOSCOPY Routine 12/13/2024 10:48 AM EDT Gastroesophageal reflux disease, unspecified whether esophagitis present Family hx of colon cancer EGD Routine 12/13/2024 10:48 AM EDT Gastroesophageal reflux disease, unspecified whether esophagitis present Family hx of colon cancer TISSUE EXAM Routine 12/13/2024 10:30 AM EDT Gastroesophageal reflux disease, unspecified whether esophagitis present Family hx of colon cancer from Last 3 Months Results * [place]ONOSCOPY [place]est[place] - [facility] [facility] ENDOSCOPY (12/13/2024 10:48 AM EDT) Anatomical Region Laterality Modality Endoscopy 12/13/2024 10:2 2 AM EDT Impressions 12/13/2024 10:50 AM EDT - The examined portion of the ileum was normal. - One 4 mm polyp in the proximal ascending colon, removed with a cold snare. Resected and retrieved. - Four 3 to 5 mm polyps at the splenic flexure, removed with a cold snare. Resected and retrieved. - One 6 mm polyp at 50 cm proximal to the anus, removed with a cold snare. Resected and retrieved. - Non-bleeding internal hemorrhoids. - The examination was otherwise normal on direct and retroflexion views. Recommendation: - Perform an upper GI endoscopy today. - Await pathology results. - Repeat colonoscopy for surveillance based on pathology results. Narrative 12/13/2024 10:50 AM EDT [facility] GI Patient Name: Oh Hugo Procedure Date: 12/13/2024 10:22 AM Date of : 1955 Age: 68 Room: ROOM 15 Gender: Male Note Status: Finalized Attending MD: Adrian Sorto MD, Procedure Date No Time: 12/13/2024 Procedure: Colonoscopy Indications: Screening in patient at increased risk: Family history of 1st-degree relative with colorectal cancer Providers: Adrian Sorto MD Referring MD: Adrian Sorto MD Medicines: Monitored Anesthesia Care Complications: No immediate complications. Estimated Blood Loss: Estimated blood loss: none. Procedure: Pre-Anesthesia Assessment: - ASA Grade Assessment: II - A patient with mild systemic disease. - After reviewing the risks and benefits, the patient was deemed in satisfactory condition to undergo the procedure. After I obtained informed consent, the scope was passed under direct vision. Throughout the procedure, the patient's blood pressure, pulse, and oxygen saturations were monitored continuously.The Olympus Pediatric Colonoscope was introduced through the anus and advanced to the terminal ileum, with identification of the appendiceal orifice and IC valve. The colonoscopy was performed without difficulty. The patient tolerated the procedure well. The quality of the bowel preparation was good. Findings: The terminal ileum appeared normal. A 4 mm polyp was found in the proximal ascending colon. The polyp was sessile. The polyp was removed with a cold snare. Resection and retrieval were complete. Estimated blood loss was minimal. Four sessile polyps were found in the splenic flexure. The polyps were 3 to 5 mm in size. These polyps were removed with a cold snare. Resection and retrieval were complete. Estimated blood loss was minimal. A 6 mm polyp was found at 50 cm proximal to the anus. The polyp was sessile. The polyp was removed with a cold snare. Resection and retrieval were complete. Estimated blood loss was minimal. Non-bleeding internal hemorrhoids were found during retroflexion. The hemorrhoids were small. The exam was otherwise without abnormality on direct and retroflexion views. Procedure Code(s): --- Professional --- 26576, Colonoscopy, flexible; with removal of tumor(s), polyp(s), or other lesion(s) by snare technique Diagnosis Code(s): --- Professional --- Z80.0, Family history of malignant neoplasm of digestive organs D12.2, Benign neoplasm of ascending colon D12.3, Benign neoplasm of transverse colon (hepatic flexure or splenic flexure) CPT copyright 2020 [employer]. All rights reserved. The codes documented in this report are preliminary and upon glove machine operator review may be revised to meet current compliance requirements. Adrian Sorto MD 12/13/2024 10:50:48 AM This report has been signed electronically.Adrian Sorto MD Number of Addenda: 0 Note Initiated On: 12/13/2024 10:22 AM Scope In: Scope Out: Endoscopy Department at [facility] - [address] [place] [id number] Procedure Note Adrian Sorto MD - 12/13/2024 [facility] GI Patient Name: Oh Hugo Procedure Date: 12/13/2024 10:22 AM Date of : 1955 Age: 68 Room: ROOM 15 Gender: Male Note Status: Finalized Attending MD: Adrian Sorto MD, Procedure Date No Time: 12/13/2024 Procedure: Colonoscopy Indications: Screening in patient at increased risk: Familyhistory of 1st-degree relative with colorectal cancer Providers: Adrian Sorto MD Referring MD: Adrian Sorto MD Medicines: Monitored Anesthesia Care Complications: No immediate complications. Estimated Blood Loss: Estimated blood loss: none. Procedure: Pre-Anesthesia Assessment: - ASA Grade Assessment: II - A patient with mild systemic disease. - After reviewing the risks and benefits, thepatient was deemed in satisfactory condition to undergo the procedure. After I obtained informed consent, the scope was passed under direct vision. Throughout theprocedure, the patient's blood pressure, pulse, and oxygen saturations were monitored continuously.The Olympus Pediatric Colonoscope was introduced through theanus and advanced to the terminal ileum, with identification of the appendiceal orifice and IC valve. The colonoscopy was performed without difficulty. The patient tolerated the procedurewell. The quality of the bowel preparation was good. Findings: The terminal ileum appeared normal. A 4 mm polyp was found in the proximal ascending colon. The polyp was sessile. The polyp was removed with a cold snare. Resection and retrieval were complete. Estimated blood loss was minimal. Four sessile polyps were found in the splenicflexure. The polyps were 3 to 5 mm in size. These polypswere removed with a cold snare. Resection and retrieval were complete. Estimated blood loss was minimal. A 6 mm polyp was found at 50 cm proximal to theanus. The polyp was sessile. The polyp was removed with a cold snare. Resection and retrieval were complete. Estimated blood loss was minimal. Non-bleeding internal hemorrhoids were found during retroflexion. The hemorrhoids were small. The exam was otherwise without abnormality ondirect and retroflexion views. Procedure Code(s): --- Professional --- 94431, Colonoscopy, flexible; with removal of tumor(s), polyp(s), or other lesion(s) by snare technique Diagnosis Code(s): --- Professional --- Z80.0, Family history of malignant neoplasm of digestive organs D12.2, Benign neoplasm of ascending colon D12.3, Benign neoplasm of transverse colon (hepatic flexure or splenic flexure) CPT copyright 2020 [employer]. All rights reserved. The codes documented in this report are preliminary and upon glove machine operator reviewmay be revised to meet current compliance requirements. Adrian Sorto MD 12/13/2024 10:50:48 AM This report has been signed electronically.Adrian Sorto MD Number of Addenda: 0 Note Initiated On: 12/13/2024 10:22 AM Scope In: Scope Out: Endoscopy Department at [facility] - [address] [place] [phone] IMPRESSION: - The examined portion of the ileum was normal. - One 4 mm polyp in the proximal ascending colon, removed with a cold snare. Resected andretrieved. - Four 3 to 5 mm polyps at the splenic flexure, removed with a cold snare. Resected andretrieved. - One 6 mm polyp at 50 cm proximal to the anus, removed with a cold snare. Resected andretrieved. - Non-bleeding internal hemorrhoids. - The examination was otherwise normal on directand retroflexion views. Recommendation: - Perform an upper GI endoscopy today. - Await pathology results. - Repeat colonoscopy for surveillance based on pathology results. us Adrian Sorto MD GI~PROCEDURE ORDERABLES Final Result * EGD Anesthesia - [facility]; [facility] ENDOSCOPY (12/13/2024 10:48 AM EDT) Anatomical Region Laterality Modality Endoscopy 12/13/2024 10:1 4 AM EDT Impressions 12/13/2024 10:52 AM EDT - Z-line regular, 40 cm from the incisors. - Small hiatal hernia. - Normal stomach. - Normal examined duodenum. - Several biopsies were obtained in the gastric antrum. Recommendation: - Discharge patient to home. - Resume previous diet. - Continue present medications. - Await pathology results. - Return to GI clinic as previously scheduled. Narrative 12/13/2024 10:52 AM EDT [facility] GI Patient Name: Oh Hugo Procedure Date: 12/13/2024 10:14 AM Date of : 1955 Age: 68 Room: ROOM 15 Gender: Male Note Status: Finalized Attending MD: Adrian Sorto MD, Procedure Date No Time: 12/13/2024 Procedure: Upper GI endoscopy Indications: Gastro-esophageal reflux disease Providers: Adrian Sorto MD Referring MD: Adrian Sorto MD Medicines: Monitored Anesthesia Care Complications: No immediate complications. Estimated Blood Loss: Estimated blood loss: none. Procedure: Pre-Anesthesia Assessment: - ASA Grade Assessment: II - A patient with mild systemic disease. - After reviewing the risks and benefits, the patient was deemed in satisfactory condition to undergo the procedure. After obtaining informed consent, the endoscope was passed under direct vision. Throughout the procedure, the patient's blood pressure, pulse, and oxygen saturations were monitored continuously.The Olympus Gastroscope was introduced through the mouth, and advanced to the third part of duodenum. The upper GI endoscopy was accomplished without difficulty. The patient tolerated the procedure well. Findings: The Z-line was regular and was found 40 cm from the incisors. A small hiatal hernia was found. The proximal extent of the gastric folds (end of tubular esophagus) was 40 cm from the incisors. The hiatal narrowing was 42 cm from the incisors. The exam of the esophagus was otherwise normal. The entire examined stomach was normal. Several biopsies were obtained in the gastric antrum with cold forceps for histology. Estimated blood loss was minimal. The examined duodenum was normal. Procedure Code(s): --- Professional --- 09869, Esophagogastroduodenoscopy, flexible, transoral; with biopsy, single or multiple Diagnosis Code(s): --- Professional --- K21.9, Gastro-esophageal reflux disease without esophagitis CPT copyright 2020 [employer]. All rights reserved. The codes documented in this report are preliminary and upon glove machine operator review may be revised to meet current compliance requirements. Adrian Sorto MD 12/13/2024 10:52:15 AM This report has been signed electronically.Adrian Sorto MD Number of Addenda: 0 Note Initiated On: 12/13/2024 10:14 AM Scope In: Scope Out: Endoscopy Department at [facility] - [address] [place] [phone] Procedure Note Adrian Sorto MD - 12/13/2024 [facility] GI Patient Name: Oh Hugo Procedure Date: 12/13/2024 10:14 AM Date of : 1955 Age: 68 Room: ROOM 15 Gender: Male Note Status: Finalized Attending MD: Adrian Sorto MD, Procedure Date No Time: 12/13/2024 Procedure: Upper GI endoscopy Indications: Gastro-esophageal reflux disease Providers: Adrian Sorto MD Referring MD: Adrian Sorto MD Medicines: Monitored Anesthesia Care Complications: No immediate complications. Estimated Blood Loss: Estimated blood loss: none. Procedure: Pre-Anesthesia Assessment: - ASA Grade Assessment: II - A patient with mild systemic disease. - After reviewing the risks and benefits, thepatient was deemed in satisfactory condition to undergo the procedure. After obtaining informed consent, the endoscope was passed under direct vision. Throughout theprocedure, the patient's blood pressure, pulse, and oxygen saturations were monitored continuously.The Olympus Gastroscope was introduced through the mouth, and advanced to the third part of duodenum. The upperGI endoscopy was accomplished without difficulty. The patient tolerated the procedure well. Findings: The Z-line was regular and was found 40 cm from the incisors. A small hiatal hernia was found. The proximalextent of the gastric folds (end of tubular esophagus) was40 cm from the incisors. The hiatal narrowing was 42cm from the incisors. The exam of the esophagus was otherwise normal. The entire examined stomach was normal. Several biopsies were obtained in the gastric antrum withcold forceps for histology. Estimated blood loss was minimal. The examined duodenum was normal. Procedure Code(s): --- Professional --- 33452, Esophagogastroduodenoscopy, flexible, transoral; with biopsy, single or multiple Diagnosis Code(s): --- Professional --- K21.9, Gastro-esophageal reflux disease without esophagitis CPT copyright 2020 [employer]. All rights reserved. The codes documented in this report are preliminary and upon glove machine operator reviewmay be revised to meet current compliance requirements. Adrian Sorto MD 12/13/2024 10:52:15 AM This report has been signed electronically.Adrian Sorto MD Number of Addenda: 0 Note Initiated On: 12/13/2024 10:14 AM Scope In: Scope Out: Endoscopy Department at [facility] - [address] [place] [phone] IMPRESSION: - Z-line regular, 40 cm from the incisors. - Small hiatal hernia. - Normal stomach. - Normal examined duodenum. - Several biopsies were obtained in the gastricantrum. Recommendation: - Discharge patient to home. - Resume previous diet. - Continue present medications. - Await pathology results. - Return to GI clinic as previously scheduled. us Adrian Sorto MD GI~PROCEDURE ORDERABLES Final Result * Tissue exam (12/13/2024 10:30 AM EDT) Final Diagnosis A. Large Intestine, Right/Ascending Colon, proximal polyp: - Tubular adenoma. B. Large intestine, Splenic flexure, polyps x4: - Tubular adenoma(s). Note: Adenomatous changes are present in 5 of 7 tissue pieces. C. Colon, polyp at 50 cm: - Tubular adenoma. D. Gastric, Antrum, biopsy: - Gastric antral mucosa with no specific pathologic changes. - No Helicobacter pylori organisms are morphologically identified. 12/16/2024 10:47 AM EDT [facility] at 1047 EDT Gross Description A. Large Intestine, Right/Ascending Colon, proximal polyp: Labeled ascend colon proximal . Received in formalin are two soft to rubbery, ruiz, polypoid tissue fragments, approximately measuring 0.4 cm and 0.7 cm in greatest diameters, inked green at the margin, admixed with minimal mucoid material, which are wrapped in paper and submitted in toto in one cassette, two pieces, multiple levels. B. Large intestine, Splenic flexure, polyps x4: Labeled splenic flex polyps x 4 . Received in formalin, are eight irregular soft to rubbery, ruiz-pink, polypoid tissue fragments, approximately ranging from 0.3 cm to 0.6 cm in greatest diameters, in which three of the polypoid tissue fragments are inked green at the margin, and admixed fecal/debris. The specimen is wrapped in paper and submitted in toto in one cassette, eight pieces, multiple levels. Please note: Small tissue fragments may not survive processing. C. Colon, polyp at 50cm.: Labeled colon polyp at . Received in formalin, is an approximately 1.1 cm in greatest diameter soft to rubbery, ruiz-pink, polypoid tissue fragment, inked green at the margin, admixed with mucoid material, which is wrapped in paper and submitted in toto in one cassette, one piece, multiple levels. D. Gastric, Antrum, biopsy: Labeled gastric, ant biopsy . Received in formalin, are five irregular soft to rubbery, ruiz-pink to red, tissue fragments, approximately ranging from 0.2 cm to 0.7 cm in greatest diameters, which are wrapped in paper and submitted in toto in one cassette, five pieces, multiple levels. Please note: Small tissue fragments may not survive processing. hs/DG 12/16/2024 10:47 AM EDT [facility] Disclaimer Unless otherwise specified, all tissue is 10% NB formalin fixed and paraffin embedded. 12/16/2024 10:47 AM EDT [facility] Tissue Ascending colon structure / Unknown 12/13/2024 10:30 AM EDT 12/13/2024 12:29 PM EDT Tissue specimen (specimen) Structure of left colic flexure / Unknown 12/13/2024 10:34 AM EDT 12/13/2024 12:29 PM EDT Tissue specimen (specimen) Colon structure / Unknown 12/13/2024 10:37 AM EDT 12/13/2024 12:29 PM EDT Tissue specimen (specimen) Pyloric antrum structure / Unknown 12/13/2024 10:45 AM EDT 12/13/2024 12:29 PM EDT us Adrian Sorto MD LAB PATHOLOGY ORDERABLES Christine crump Result [facility] [address] [place] [address], [place] [phone] from Last 3 Months Insurance [facility] Care Teams Vice Chair Relationship Specialty Start Date End Date Alem Pérez MD [address] [facility] [place] [address] PCP - General Internal Medicine 08/21/24
--- OUTSIDE RECORDS SUMMARY | 2025-01-06 16:08 | XMS_ITS | Encounter Summary ---
Author Organization [facility] Address [address] [place] [address] Care Team Providers Care Medical Radiation Dosimetrist Name Role Phone Alem Pérez MD Primary Care Provider [phone] Encounter Details Date Type Department Care Team (Late st Contact Info) Description 12/16/2024 Results Follow-Up Gastroenterology - [address] [place] [address] [facility] Social History Tobacco Use Types Packs/Day Years [...] on file documented as of this encounter Plan of Treatment Not on file documented as of this encounter Visit Diagnoses Not on filedocumented in this encounter Care Teams Medical Radiation Dosimetrist Relationship Specialty Start Date End Date Alem Pérez MD [address] [place] [address] PCP - General Internal Medicine 08/21/24 documented as of this encounter
== END 2025-01-06 14:22 | disposition home or self-care (01) ==
LOC: HO.HMCC 13:13
PROVIDERS: PCP Internal Medicine; Visit Provider Internal Medicine
DX: Z00.00 Encounter for general adult medical examination without abnormal findings (principal); I10 Essential (primary) hypertension; E11.9 Type 2 diabetes mellitus without complications; Z79.4 Long term (current) use of insulin; J44.9 Chronic obstructive pulmonary disease, unspecified; R06.09 Other forms of dyspnea

== ENCOUNTER → 2025-01-06 13:12 | Outpatient (BNVA) | payer OTHER, SELFPAY | PROVIDERS: PCP Internal Medicine; Visit Provider Internal Medicine | DX: Z00.00 Encounter for general adult medical examination without abnormal findings (principal); F41.9 Anxiety disorder, unspecified; F32.A Depression, unspecified; I10 Essential (primary) hypertension; E11.9 Type 2 diabetes mellitus without complications; J44.9 Chronic obstructive pulmonary disease, unspecified; R06.9 Unspecified abnormalities of breathing; Z79.4 Long term (current) use of insulin | CPT/HCPCS: 99397 ==

== ENCOUNTER → 2025-01-07 09:30 | Outpatient (REF) | payer OTHER, SELFPAY ==
--- NOTE | ~2025-01-07 | NM_ITS ---
Lexiscan Myocardial perfusion study Indication: Shortness of breath to evaluate for myocardial ischemia Technique: The patient was brought in for a Lexiscan perfusion study on 01/07/2025 and was injected 0.4 mg of Lexiscan intravenously. Within a minute of this injection 30 mCi of sestamibi was given intravenously. Images were obtained using the SPECT gamma camera interlaced with the gating device. Images were obtained in supine position. Resting perfusion study was performed on 01/09/2025. Patient was administered 30 mCi of sestamibi intravenously at rest. Images were then obtained in supine position. Images obtained without without CT attenuation. Total DLP 73 mGy-cm. Images were processed with the software and compared side to side in short axis, horizontal long axis and vertical long axis views. Findings: The stress perfusion study showed nonattenuated images show minimally to mildly reduced uptake in the basal and mid inferior wall of the LV myocardium. Remainder of the LV myocardium is normally perfused. Attenuation corrected images show minimal thinning of the apex of the LV myocardium. The gated study shows normal LV systolic function with calculated LVEF of 70%. LV cavity is normal in size. The gated study shows normal systolic wall thickening and contraction of segments. Resting study shows no change in perfusion pattern compared to stress perfusion study. Gating at rest reveals normal systolic wall motion with ejection fraction at 67%. The findings are consistent with normal myocardial perfusion. NM/NM cardiolite stress test Impression: 1. Myocardial perfusion imaging study shows normal myocardial perfusion 2. Gated LVEF is 70% 3. Transient ischemic dilatation not present Nondiagnostic for ischemia on EKG. Electronically signed by: Adolfo Goins MD 01/10/2025 02:47 PM EDT
--- NOTE | 2025-01-07 09:35 | CA_ITS ---
Acquisition Time: 2025-01-07 10:46:29 Total Exercise Time: 00:03:13 Test Indications: ANGINA DYSPNEA Medications: PROANEDIAL LISINOPRIL METFORMIN Protocol: RUFINO Max HR: 146 BPM 96% of Pred: 151 BPM Max BP: 130/86 mmHG Max Work Load: 4.6 METS Exercise stress test with exercise 3 mins 13 secs of Rufino Protocol, achieving 75% MPHR, stopped test due to walking trouble on treadmill, without any reports of CP, test switched to Lexiscan. Pharmacological stress test with Le xiscan while pt swings his legs in chair, with reports of SOB, with isolated PACs and PVCs, with normotensive response to injection. Nondiagnostic EKG for ischemia. In recovery, pt treated with IVP Aminophylline 75 mg to reverse Lexiscan after which pt feeling back to baseline. Nuclear images pending. Test reviewed with Dr. Goins. Referred By: Alem Pérez Electronically Signed By: Gama Marsh
--- OUTSIDE RECORDS SUMMARY | 2025-01-07 10:42 | XMS_ITS | Encounter Summary ---
Author Organization [facility] Address [address] [place] [address] Care Team Providers Care Cans Vacuum Tester Name Role Phone Alem Pérez MD Primary Care Provider [phone] Encounter Details Date Type Department Care Team (Late st Contact Info) Description 12/16/2024 Results Follow-Up Gastroenterology - [address] [place] [address] [facility] Social History Tobacco Use [...] on filedocumented in this encounter Care Teams Cans Vacuum Tester Relationship Specialty Start Date End Date Alem Pérez MD [address] [place] [address] PCP - General Internal Medicine 08/21/24 documented as of this encounter
--- OUTSIDE RECORDS SUMMARY | 2025-01-07 10:42 | XMS_ITS | Clinical Summary ---
Author Organization [facility] [address] [facility] Address [address] [place] [address] Phone Care Team Providers Care Photoresist Printer Name Role Phone Alem Pérez MD Primary Care Provider [phone] Allergies Active Allergy Reactions Criticality Noted Date [...] (type 2 diabetes mellitus) (CMS/HCC V24, CM S/[facility] V28) 11/12/2024 HTN (hypertension) 11/12/2024 Encounters Date Type Department Care Team Description 12/16/2024 Results Follow-Up Gastroenterology - [address] [place] [phone] [place], [place] 12/13/2024 10:21 AM EDT Anesthesia Event [facility] [address] [place] [address] Dougie Mederos MD Walsh, Michael, DO 12/13/2024 9:39 AM EDT - 12/13/2024 11:59 PM EDT Hospital Encounter [facility] [address] [place] [address] Adrian Sorto MD Dickman, Christy L, CRNA Dasilva, John E, MD Gastroesophageal reflux disease, unspecified whether esophagitis present; Family hx of colon cancer Discharge Disposition: Home or Self Care 11/12/2024 2:20 PM EDT Consult Gastroenterology - [address] [address] Melanie Newby PA Gastroesophageal reflux disease, unspecified whether esophagitis present (Primary Dx); Colon cancer screening 11/12/2024 Telephone Gastroenterology - 299 [facility] 299 [facility] [address] [place] [address] Ronak Turner MD from Last [...] 3 Months Results * COLONOSCOPY Anesthesia - [facility]; [facility] ENDOSCOPY (12/13/2024 10:48 AM EDT) [...] pathology results. Narrative 12/13/2024 10:50 AM EDT [facility] GI Patient Name: Oh Hugo Procedure Date: [...] retroflexion views. Procedure Code(s): --- Professional --- 04980, Colonoscopy, flexible; with removal of tumor(s), polyp(s), or other lesion(s) by snare technique Diagnosis Code(s): --- Professional --- Z80.0, Family history of malignant neoplasm of digestive organs D12.2, Benign neoplasm of ascending colon D12.3, Benign neoplasm of transverse colon (hepatic flexure or splenic flexure) CPT copyright 2020 [employer]. All rights reserved. The codes documented in this report are preliminary and upon junk removal specialist review may be revised to meet current compliance requirements. Adrian Sorto MD 12/13/2024 10:50:48 AM This report has been signed electronically.Adrian Sorto MD Number of Addenda: 0 Note Initiated On: 12/13/2024 10:22 AM Scope In: Scope Out: Endoscopy Department at [facility] - [address] [place] [phone] Procedure Note Adrian Sorto MD - 12/13/2024 [facility] GI Patient Name: Oh Hugo Procedure Date: [...] retroflexion views. Procedure Code(s): --- Professional --- 53742, Colonoscopy, flexible; with removal of tumor(s), polyp(s), or other lesion(s) by snare technique Diagnosis Code(s): --- Professional --- Z80.0, Family history of malignant neoplasm of digestive organs D12.2, Benign neoplasm of ascending colon D12.3, Benign neoplasm of transverse colon (hepatic flexure or splenic flexure) CPT copyright 2020 [employer]. All rights reserved. The codes documented in this report are preliminary and upon junk removal specialist reviewmay be revised to meet current compliance requirements. Adrian Sorto MD 12/13/2024 10:50:48 AM This report has been signed electronically.Adrian Sorto MD Number of Addenda: 0 Note Initiated On: 12/13/2024 10:22 AM Scope In: Scope Out: Endoscopy Department at [facility] - [address] [place] [phone] IMPRESSION: - The examined portion of the [...] ORDERABLES Final Result * EGD Anesthesia - [facility]; [facility] ENDOSCOPY (12/13/2024 10:48 AM EDT) [...] previously scheduled. Narrative 12/13/2024 10:52 AM EDT [facility] GI Patient Name: Oh Hugo Procedure Date: [...] was normal. Procedure Code(s): --- Professional --- 72396, Esophagogastroduodenoscopy, flexible, transoral; with biopsy, single or multiple Diagnosis Code(s): --- Professional --- K21.9, Gastro-esophageal reflux disease without esophagitis CPT copyright 2020 [employer]. All rights reserved. The codes documented in this report are preliminary and upon junk removal specialist review may be revised to meet current compliance requirements. Adrian Sorto MD 12/13/2024 10:52:15 AM This report has been signed electronically.Adrian Sorto MD Number of Addenda: 0 Note Initiated On: 12/13/2024 10:14 AM Scope In: Scope Out: Endoscopy Department at [facility] - [address] [place] [phone] Procedure Note Adrian Sorto MD - 12/13/2024 [facility] GI Patient Name: Oh Hugo Procedure Date: [...] was normal. Procedure Code(s): --- Professional --- 54377, Esophagogastroduodenoscopy, flexible, transoral; with biopsy, single or multiple Diagnosis Code(s): --- Professional --- K21.9, Gastro-esophageal reflux disease without esophagitis CPT copyright 2020 [employer]. All rights reserved. The codes documented in this report are preliminary and upon junk removal specialist reviewmay be revised to meet current compliance requirements. Adrian Sorto MD 12/13/2024 10:52:15 AM This report has been signed electronically.Adrian Sorto MD Number of Addenda: 0 Note Initiated On: 12/13/2024 10:14 AM Scope In: Scope Out: Endoscopy Department at [facility] - [address] [place] [phone] IMPRESSION: - Z-line regular, 40 cm from [...] are morphologically identified. 12/16/2024 10:47 AM EDT [facility] at 1047 EDT Gross Description A. [...] survive processing. hs/DG 12/16/2024 10:[address] [facility] Disclaimer Unless otherwise specified, all tissue is 10% NB formalin fixed and paraffin embedded. 12/16/2024 10:[address] [facility] Tissue Ascending colon structure / Unknown [...] MD LAB PATHOLOGY ORDERABLES Christine crump Result [facility] [address] [place] [address], [place] [phone] from Last 3 Months Insurance [facility] Care Teams Photoresist Printer Relationship Specialty Start Date End Date Alem Pérez MD 1961 [place] [address] PCP - General Internal Medicine 08/21/24
== END ==
LOC: HO.CARD 09:30
PROVIDERS: PCP Internal Medicine; Visit Provider Internal Medicine
DX: R06.09 Other forms of dyspnea (principal); I20.89 Other forms of angina pectoris
CPT/HCPCS: 78452; 93017; A9500; J0280; J2785

== ENCOUNTER → 2025-01-07 09:35 | Outpatient (BNV) | payer OTHER, SELFPAY | PROVIDERS: PCP Internal Medicine | DX: I49.1 Atrial premature depolarization (principal); I49.3 Ventricular premature depolarization; R06.02 Shortness of breath | CPT/HCPCS: 78452; 93016; 93018 ==